=== PATIENT | male | born 1930 | race Caucasian/White ===

== ENCOUNTER → 2016-05-07 | Outpatient (CLI) | payer OTHER ==
[~2016-05-07] MED LIST: ASPIRIN81 M2 PO; ASPIRIN81 MG PO; ASPIRINEC PO; BYSTOLIC5 MG PO; CARAFATE PO; CENTRUM SILVER PO; COREG PO; DITROPAN XL10 MG PO; FIBER500 MG PO; HCTZ PO; IMDUR PO; IRON SUPPLEMENT; LEVAQUIN750 M1 PO; LIPITOR PO; LIPITOR20 MG PO; LISINOPRIL PO; METOPROLOL TAR25 MG PO; MULTI-DAY1 TAB PO; NITROGYLCERIN SUBLINGUAL; NORCO; PLAVIX PO; PROTONIX PO; VITAMIN D400 UNI2 PO; ZOCOR20 MG PO
[2016-05-07 15:17] LABS: HEMATOCRIT 22.2 % (38.0-50.0); HEMOGLOBIN 7.1 gm/dL (13.0-16.0); MEAN CELL VOLUME 87.4 FL (83-96); MEAN CORPUSCULAR HEMOGLOBIN 28.1 PG (28-34); MEAN CORPUSCULAR HGB CONC 32.1 g/dL (30-36); MEAN PLATELET VOLUME 7.7 FL (6.5-11.5); RED BLOOD COUNT 2.54 X10e (3.90-5.60); RED CELL DISTRIBUTION WIDTH 14.1 % (11.0-15.5); WHITE BLOOD COUNT 4.7 X10e3 (4.0-10.5)
== END | disposition home or self-care (01) ==
LOC: CLAB 14:16
PROVIDERS: Surgery
DX: R10.9 Unspecified abdominal pain (principal); K92.1 Melena
CPT/HCPCS: 36415; 85027

== ENCOUNTER → 2016-05-11 | Day surgery (SDC) | payer OTHER ==
--- NOTE | ~2016-05-11 | OR ---
Unit #: [id number] #: [id number] Patient: JOCELYN LAMBERT [id number] [address] [address] [id number] O MR#: [id number] NAME: JOCELYN LAMBERT ROOM: Date of Procedure: 05/11/2016 Admission Date: 05/11/2016 Surgeon: Rodrigue Nelson Jr., M.D. : 1930 Attending Physician: Rodrigue Nelson Jr., M.D. Referring Physician: Rodrigue Nelson Jr., M.D. OPERATIVE REPORT INDICATION FOR PROCEDURE The patient is an 85-year-old white male, who recently was seen at the office and noted to be somewhat anemic. He stated that he has had black stools and he underwent a prep at home. He is brought in this time for upper and lower endoscopy. CBC revealed hemoglobin of 7.1. He was set up to have blood given today and this has been started and he feels much better after the transfusion. PREOPERATIVE DIAGNOSIS Gastrointestinal bleed, etiology? POSTOPERATIVE DIAGNOSES Small hiatal hernia with multiple superficial duodenal ulcers and previous surgery with colonoscopy to the terminal ileum. Small polyp was noted in the transverse colon near the hepatic flexure and diverticulosis of left colon. ANESTHESIA MAC anesthesia. PROCEDURE PERFORMED Flexible fiberoptic esophagogastroduodenoscopy with flexible colonoscopy to the distal ilium and biopsy of a small polyp in the transverse colon. DESCRIPTION OF PROCEDURE The patient was positioned in Sawant position with left side down. After being given MAC anesthesia, the Olympus XQ scope was passed in the proximal esophagus. The entire esophagus was examined. There was no evidence of any significant esophagitis except near the GE junction, there was some slight irritation. There was no evidence of any stenosis. The scope was advanced through the GE junction, the cardia, and down the fundic and antral region of the stomach, retroflexed back up to the area of the cardia. There was a small hiatal hernia present. The stomach distended well without evidence of rigidity. There was evidence of probable resection of the distal stomach. The scope was then advanced down to the prepyloric region and there appeared to be a wide open pyloric area, although this may merely be a gastroduodenostomy. The scope was then advanced through this area into the duodenum, where there were multiple small superficial duodenal ulcerations. The scope was then advanced down the distal bowel, there was no evidence of any other abnormalities. The scope was then slowly removed. The patient was repositioned for colonoscopy. Digital rectal examination was performed, Unit #: [id number] #: [id number] Patient: JOCELYN LAMBERT which revealed no palpable mass or tenderness. No blood or stool within the rectal ampulla. Prostate was very hard, almost rock hard and irregular. He has had a known past history for prostatic disease probably prostate cancer. The Olympus colonoscope was advanced through the anal canal up the rectum and retroflexed down to the area of the anorectal region. There was no evidence of any fissures. No significant internal hemorrhoids. The scope was then straightened and advanced up the rectosigmoid, in the sigmoid and descending colon areas, where a few diverticula without evidence of diverticulitis. The scope was then advanced around the splenic flexure and the transverse colon over the area of the hepatic flexure, where there was a small 1 to 2 mm polyp, which was basically removed with a couple of bites with the cold biopsy forceps without bleeding. The scope was then advanced around the hepatic flexure and ascending colon, down the area of the cecum. The light from the tip of the scope could be seen transilluminating through right lower quadrant abdominal wall area. The scope was advanced up the distal ileum approximately 10 to 12 inches. There was no evidence of any ileitis or inflammatory bowel disease. The scope was slowly removed. There were no tumors except for the one small polyp, no other polyps, no cancer, no AVMs. No evidence of any colitis or acute diverticulitis. The caliber of the colon appeared normal throughout without evidence of narrowing or obstruction. The scope was removed. The patient tolerated the procedure well and discharged in satisfactory condition. Dictated by... Rodrigue Nelson Jr., M.D. JMB/olivia TD: 05/12/2016 05:29 JOB #: [id number] OPERATIVE REPORT Page 1 of 1 X Rodrigue Nelson MD X PROCEDURE OPERATIVE NOTE
== END | disposition home or self-care (01) ==
LOC: COPS 07:26
DX: D12.3 Benign neoplasm of transverse colon (principal); K57.30 Diverticulosis of large intestine without perforation or abscess without bleeding; K44.9 Diaphragmatic hernia without obstruction or gangrene; D64.9 Anemia, unspecified; I10 Essential (primary) hypertension; I25.10 Atherosclerotic heart disease of native coronary artery without angina pectoris; I25.2 Old myocardial infarction; E89.0 Postprocedural hypothyroidism; Z79.82 Long term (current) use of aspirin; Z79.899 Other long term (current) drug therapy; Z90.3 Acquired absence of stomach [part of]; Z90.49 Acquired absence of other specified parts of digestive tract; Z98.41 Cataract extraction status, right eye; Z98.42 Cataract extraction status, left eye; Z98.52 Vasectomy status; Z98.890 Other specified postprocedural states
CPT/HCPCS: 36430; 86850; 86900; 86901; 86922; 88305; P9016

== ENCOUNTER 2016-05-16 19:25 | Inpatient (IN) | payer OTHER ==
--- NOTE | ~2016-05-16 | CR72 ---
[facility] A Service of [facility] RADIOLOGY TEXT RESULTS PATIENT: JOCELYN LAMBERT LOCATION: [address] : [birth year] UNIT #: [id number] AGE: [address]: MIYA OLIVER MD SEX: M ORDER DR: [id number] [place], [place] [address] [id number] I MR#: [id number] Acc #: [id number] NAME: JOCELYN LAMBERT. : 1930 SEX: M STUDY DATE/TIME: 05/21/2016 6:01 UNIT: [facility] ROOM: [facility] STUDY DESCRIPTION: CR Chest Single View Portable Attending Physician: Miya Oliver M.D. Ordering Physician: Bear Javier M.D. Primary Care Physician: Primary Care Physician No MEDICAL IMAGING REPORT This report is preliminary unless electronic signature is present EXAM AP portable chest 05/21/2016 06:01 HISTORY Chest tube placement. On ventilator. Symptoms began 05/17/2016. History of cardiac arrest, rib fracture, right pneumothorax. History of colorectal cancer, congestive heart failure, coronary artery disease, previous stroke and myocardial infarction. Remote smoking history. COMPARISON AP portable chest 05/20/2016. FINDINGS Right chest tube is stable in position. No pneumothorax is visible. Stable cardiac enlargement with central vascular congestion. Persistent retrocardiac left lower lobe consolidative change with small left pleural effusion. Trace right pleural effusion persists. Right IJ approach catheter projects over expected location of the right ventricle. Dobbhoff tube extends below the level of the diaphragm with tip not included in the imaging field of view. Fine interstitial prominence in the mid to lower lung zones is nonspecific and may represent changes of mild interstitial edema. IMPRESSION 1. Questionable features of mild or early interstitial edema, slightly more prominent than on prior exam. 2. No visible pneumothorax. Supporting lines and tubes appear unchanged. 3. Persistent left lower lobe consolidation with small left, trace right pleural effusions. 4. Stable cardiac enlargement. Dictated by... [facility] A Service of [facility] RADIOLOGY TEXT RESULTS PATIENT: JOCELYN LAMBERT LOCATION: [address] : [birth year] UNIT #: [id number] AGE: [address]: MIYA OLIVER MD SEX: M ORDER DR: Alejandrina Liao M.D. THIS IS AN ELECTRONICALLY VERIFIED REPORT Alejandrina Liao M.D. at 05/22/2016 8:33 AM FLORA/moses TD: 05/21/2016 09:50 JOB #: [id number] MEDICAL IMAGING REPORT Page 1 of 1 COPY
--- NOTE | ~2016-05-16 | EKG ---
PATIENT: JOCELYN LAMBERT UNIT #: [id number] Ventricular Rate: 46 BPM Atrial Rate: 46 BPM P-R Interval: 170 ms QRS Duration: 172 ms Q-T Interval: 568 ms QTC Calculation(Bezet): 497 ms P [place]: 19 degrees Calculated R [place]: -22 degrees Calculated T [place]: 109 degrees Diagnosis Line: Sinus bradycardia Diagnosis Line: Left bundle branch block Diagnosis Line: Abnormal ECG Diagnosis Line: No previous ECGs available Diagnosis Line: Confirmed by VALENTIN RAMIREZ MD ([id number]) on 05/16/2016 Diagnosis Line: 11:04:32 PM INTERPRETING MD: JAMES WHITMAN
--- NOTE | ~2016-05-16 | EKG ---
PATIENT: JOCELYN LAMBERT UNIT #: [id number] Ventricular Rate: 69 BPM Atrial Rate: 76 BPM QRS Duration: 222 ms Q-T Interval: 644 ms QTC Calculation(Bezet): 690 ms P [place]: 77 degrees Calculated R [place]: -77 degrees Calculated T [place]: 89 degrees Diagnosis Line: Electronic ventricular pacemaker Diagnosis Line: When compared with ECG of 17-MAY-2016 09:21, Diagnosis Line: (unconfirmed) Diagnosis Line: Previous ECG has undetermined rhythm, needs review Diagnosis Line: Confirmed by VALENTIN RAMIREZ MD ([id number]) on 05/18/2016 Diagnosis Line: 7:14:04 PM INTERPRETING MD: JAMES WHITMAN
--- NOTE | ~2016-05-16 | CR6 ---
[facility] A Service of [facility] & [facility] RADIOLOGY TEXT RESULTS PATIENT: JOCELYN LAMBERT LOCATION: [address] : [birth year] UNIT #: [id number] AGE: [address]: Francisco Villanueva MD SEX: M ORDER DR: [id number] [facility] [address] [facility]. [place], [place] [address] [id number] I MR#: [id number] Acc #: [id number] NAME: JOCELYN LAMBERT : 1930 SEX: M STUDY DATE/TIME: 05/17/2016 16:02 UNIT: [facility] ROOM: [facility] STUDY DESCRIPTION: CR Abdomen Portable Sng View Attending Physician: Francisco Villanueva M.D. Ordering Physician: Kevan Scott M.D. Primary Care Physician: No Primary Care Physician MEDICAL IMAGING REPORT This report is preliminary unless electronic signature is present EXAM Portable abdomen HISTORY Dobbhoff tube placement today. FINDINGS Portable radiograph of the abdomen for Dobbhoff tube placement demonstrates the feeding tube tip is in the left upper quadrant at the level of the proximal gastric body 14 cm beyond the EG junction. Visualized bowel gas pattern is normal. The exam partly excludes the right lateral abdomen in the lower pelvis. Consolidation or atelectasis in the retrocardiac left lower lobe. Dictated by... Samuel Badillo M.D. THIS IS AN ELECTRONICALLY VERIFIED REPORT Samuel Badillo M.D. at 05/17/2016 11:16 PM DFL/rnr TD: 05/17/2016 20:07 JOB #: [id number] MEDICAL IMAGING REPORT Page 1 of 1 COPY
--- NOTE | ~2016-05-16 | CR72 ---
[facility] A Service [facility] RADIOLOGY TEXT RESULTS PATIENT: JOCELYN LAMBERT LOCATION: [facility] : [birth year] UNIT #: [id number] AGE: [address]: Francisco Villanueva MD SEX: M ORDER DR: [id number] [place], [place] [address] [id number] I MR#: [id number] Acc #: [id number] NAME: JOCELYN LAMBERT : 1930 SEX: M STUDY DATE/TIME: 05/17/2016 0:02 UNIT: [facility] ROOM: [id number] STUDY DESCRIPTION: CR Chest Single View Portable Attending Physician: Alannah Skinner M.D. Ordering Physician: Frantz Ramos M.D. Primary Care Physician: Primary Care Physician No MEDICAL IMAGING REPORT This report is preliminary unless electronic signature is present EXAM Portable chest INDICATIONS ET tube placement. PROCEDURE Frontal view chest. COMPARISON 05/16/2016 FINDINGS Probably stable cardiomegaly. ET tube is positioned approximately 3.5 cm above the hermilo. No new dense consolidation. Curvilinear lucency in the right apex suspicious for a small right apical pneumothorax. This is not seen on the prior. IMPRESSION 1. ET tube is approximately 3.5 cm above the hermilo. 2. Suspicion for a small right apical pneumothorax new compared with the previous study. Dictated by... Luis A Breaux M.D. THIS IS AN ELECTRONICALLY VERIFIED REPORT Luis A Breaux M.D. at 05/21/2016 7:30 AM EED/psc TD: 05/17/2016 04:04 JOB #: [id number] [facility] A Service [facility] RADIOLOGY TEXT RESULTS PATIENT: JOCELYN LAMBERT [facility] [birth year] UNIT #: [id number] AGE: [address]: Francisco Villanueva MD SEX: M ORDER DR: MEDICAL IMAGING REPORT Page 1 of 1 COPY
--- NOTE | ~2016-05-16 | CO ---
Unit #: [id number] #: [id number] Patient: JOCELYN LAMBERT [id number] [place], [place] [address] [id number] I MR#: [id number] NAME: JOCELYN LAMBERT. ROOM: [facility] Age: 85 Sex: M Admission Date: 05/17/2016 : 1930 Attending Physician: Francisco Villanueva M.D. Consultation Date: 05/20/2016 CONSULTATION REPORT REASON FOR CONSULTATION Renal insufficiency and decreased output. Thank you very much for asking us to see this patient in consultation. HISTORY OF PRESENT ILLNESS Mr. Jocelyn Lambert is an 85-year-old gentleman, who has history of hypertension, heart disease, vascular disease, who underwent EGD about on 05/11/2016, showed multiple ulcers, who apparently prior to admission on 05/17/2016 had increasing shortness of breath, was treated with Levaquin as an outpatient, apparently had several syncopal episodes, presented to the emergency room where he had V-fib arrest requiring CPR, developed pneumothorax and requiring a chest tube. Since admission, the patient was noted to have an echo which showed a decreased EF around 15% to 20%. He also has a temporary pacemaker and currently, he has also had some increasing bleeding from his chest tube requiring several units of blood. We were asked to see the patient secondary to worsening creatinine. In 2012, he had a creatinine of 1.2. Upon admission, creatinine was 1.5 and up to 3.1 today with some decreased output. The patient over the last 24 hours had 3.9 L in and 965 out. Although, the day prior to that had 1400 more out than in. The patient currently is alert. He is having some mild shortness of breath, but not severe. He says his chest is sore where the chest tube is. He denies any severe abdominal pain. No nausea or vomiting. Although, he is not eating yet. He feels the swallowing study and he has a Dobbhoff placed that has not been used yet. PAST MEDICAL HISTORY History of hypertension; history of atherosclerotic coronary artery disease, status post stents in 2008; history of TIA/CVA in 2008; history of peripheral vascular disease; history of peptic ulcer disease; again duodenal ulcers on 05/11/2016 EGD; history of colon/rectal cancer, status post surgery. He has had multiple abdominal surgeries apparently due to adhesions, history of hyperlipidemia. ALLERGIES No known drug allergies. SOCIAL HISTORY He is . Previous smoker, stopped at 67. No significant alcohol use. MEDICATIONS Include Lipitor, aspirin, amiodarone, Percocet, Protonix, Coreg. He was on Lasix, spironolactone, and lisinopril that was started but that has Unit #: [id number] #: [id number] Patient: JOCELYN LAMBERT been discontinued today. REVIEW OF SYSTEMS He denies any visual problems or sinus problems. No cough or hemoptysis. No neck pain. He has chest sore. Shortness of breath is not any worse, maybe a little bit better. He denies any severe abdominal pain. He previously had no urinary symptoms, although currently he has Soto catheter in. He denies any significant lower extremity swelling. No recent seizures. No skin rashes. FAMILY HISTORY Noncontributory. PHYSICAL EXAMINATION VITAL SIGNS: His T-max is 99.7, pulse 66, blood pressure 87 to 118 over 40s to 70s. HEENT: Normocephalic and atraumatic. Pupils are equal, round, and reactive to light. Extraocular muscles are intact. Hearing appears to be fairly normal. Mouth is clear. No erythema. No exudates. NECK: Supple. No adenopathy. He has a pace wire going in line in his right neck. CARDIAC: Without a rub. No S3 or S4. LUNGS: Have bilateral rales at his bases. Chest tube is on the right. ABDOMEN: Bowel sounds positive. Nontender. Soft. No masses felt. No mass or organomegaly noted. EXTREMITIES: He has some very very trace ankle edema right greater than left. SKIN: He has no skin rashes. : Soto catheter is in place. NEUROLOGIC: He appears to be alert and oriented. Able to move all extremities. DIAGNOSTIC STUDIES LABORATORY RESULTS: Shows sodium of 139, potassium 4.9, chloride is 107, bicarb is 24, BUN and creatinine 43 and 3.1, glucose 123, calcium 7.7, phosphorus 5.8. Previous creatinine is as in the HPI. Hemoglobin 7.5, white count 10,400, platelets 133,000. UA upon admission showed no protein, 0 to 2 rbc's, 0 to 2 wbc's. IMAGING STUDIES: His chest x-ray this morning showed bilateral effusions left greater than right and has some cardiomegaly questionable failure. Echo done now showed an EF 15% to 20%. ASSESSMENT AND PLAN 1. Acute kidney injury on possible chronic kidney disease, stage 3. Again, BUN and creatinine are worsening with decreasing output. His diuretics and his DAMIEN inhibitor was stopped this morning. He was started on some mild hydration. My gut feeling is that he probably has acute tubular necrosis from his episode of hypotension, code ventricular tachycardia, blood loss, etc., but agree with some mild hydration. Although, I am going to start him on some tube feeds and discontinue his IV fluids after only 1 L. Certainly, if he gets more short of breath, then I would stop all fluids and give high-dose diuretics. We will check a urine eosinophil. We will keep him on his PPI for now due to his ulcers found on his esophagogastroduodenoscopy. We will check renal ultrasound tomorrow. We will continue to follow. Start Nepro. 2. Status post arrest, ventricular tachycardia. Decrease EF. 3. Respiratory insufficiency with pneumothorax, chest tube. Unit #: [id number] #: [id number] Patient: JOCELYN LAMBERT 4. Anemia, intermittent transfusions as needed. Dictated by..Deborah Davis M.D. JUDIT/olivia TD: 05/21/2016 00:10 JOB #: [id number] CONSULTATION REPORT Page 1 of 1 X Isabell Davis MD X CONSULTATION REPORT
--- NOTE | ~2016-05-16 | EKG ---
PATIENT: JOCELYN LAMBERT UNIT #: [id number] Ventricular Rate: 66 BPM Atrial Rate: 60 BPM QRS Duration: 214 ms Q-T Interval: 568 ms QTC Calculation(Bezet): 595 ms Calculated R [place]: -78 degrees Calculated T [place]: 89 degrees Diagnosis Line: Electronic ventricular pacemaker Diagnosis Line: When compared with ECG of 19-MAY-2016 12:05, Diagnosis Line: (unconfirmed) Diagnosis Line: No significant change was found Diagnosis Line: Confirmed by VALENTIN RAMIREZ MD ([id number]) on 05/20/2016 Diagnosis Line: 4:45:24 PM INTERPRETING MD: JAMES WHITMAN
--- NOTE | ~2016-05-16 | EKG ---
PATIENT: JOCELYN LAMBERT UNIT #: [id number] Ventricular Rate: 89 BPM Atrial Rate: 86 BPM P-R Interval: 304 ms QRS Duration: 160 ms Q-T Interval: 376 ms QTC Calculation(Bezet): 457 ms P [place]: 126 degrees Calculated R [place]: -17 degrees Calculated T [place]: 96 degrees Diagnosis Line: Normal sinus rhythm with A-V dissociation Diagnosis Line: Non-specific intra-ventricular conduction block Diagnosis Line: Inferior infarct , age undetermined Diagnosis Line: Marked T wave abnormality, consider anterolateral Diagnosis Line: ischemia Diagnosis Line: Abnormal ECG Diagnosis Line: When compared with ECG of 16-MAY-2016 19:32, Diagnosis Line: Normal sinus rhythm with A-V dissociation is now Diagnosis Line: Present Diagnosis Line: Non-specific intra-ventricular conduction block Diagnosis Line: has replaced Left bundle branch block Diagnosis Line: Inferior infarct is now Present Diagnosis Line: Confirmed by VALENTIN RAMIREZ MD ([id number]) on 05/18/2016 Diagnosis Line: 6:58:47 PM INTERPRETING MD: JAMES WHITMAN
--- NOTE | ~2016-05-16 | EKG ---
PATIENT: JOCELYN LAMBERT UNIT #: [id number] Ventricular Rate: 42 BPM Atrial Rate: 55 BPM QRS Duration: 174 ms Q-T Interval: 554 ms QTC Calculation(Bezet): 462 ms P [place]: 21 degrees Calculated R [place]: -38 degrees Calculated T [place]: 142 degrees Diagnosis Line: Sinus bradycardia with A-V dissociation with Diagnosis Line: ventricular escape complexes Diagnosis Line: Left axis deviation Diagnosis Line: Left bundle branch block Diagnosis Line: Abnormal ECG Diagnosis Line: When compared with ECG of 16-MAY-2016 23:55, Diagnosis Line: (unconfirmed) Diagnosis Line: Sinus bradycardia with ventricular escape Diagnosis Line: complexes is now Present Diagnosis Line: Left bundle branch block has replaced Non-specific Diagnosis Line: intra-ventricular conduction block Diagnosis Line: Criteria for Inferior infarct are no longer Diagnosis Line: Present Diagnosis Line: Confirmed by VALENTIN RAMIREZ MD ([id number]) on 05/18/2016 Diagnosis Line: 7:02:51 PM INTERPRETING MD: JAMES WHITMAN
--- NOTE | ~2016-05-16 | CR72 ---
[facility] A Service of [facility] & [facility] RADIOLOGY TEXT RESULTS PATIENT: JOCELYN LAMBERT LOCATION: [address] [address] : [birth year] UNIT #: [id number] AGE: [address]: Francisco Villanueva MD SEX: M ORDER DR: [id number] [facility] [address] [facility]. [place], [place] [address] [id number] I MR#: [id number] Acc #: [id number] NAME: JOCELYN LAMBERT : 1930 SEX: M STUDY DATE/TIME: 05/20/2016 0344 UNIT: [facility] ROOM: [facility] STUDY DESCRIPTION: CR Chest Single View Portable Attending Physician: Francisco Villanueva M.D. Ordering Physician: Arcadio Briones M.D. Primary Care Physician: No Primary Care Physician MEDICAL IMAGING REPORT This report is preliminary unless electronic signature is present EXAM Portable chest, 05/20 at 0344. INDICATION Chest tube. Patient appears status post cardiac arrest and pneumonia. FINDINGS AP portable views of the chest are compared with 05/19/2016. Right IJ transvenous pacer projects over the RV. Cardiomegaly is stable. Bilateral effusions are stable left greater than right. Right chest tube in place. No pneumothorax is seen on either side of the chest. Some continued vascular congestion and there is consolidation behind the heart at the left base. Dictated by... Williams Mcmahan Jr., M.D. THIS IS AN ELECTRONICALLY VERIFIED REPORT Williams Mcmahan Jr., M.D. at 05/20/2016 11:58 PM SARANYA/aishwarya TD: 05/20/2016 08:01 JOB #: [id number] MEDICAL IMAGING REPORT Page 1 of 1 COPY
--- NOTE | ~2016-05-16 | CR72 ---
[facility] A Service of [facility] & [facility] RADIOLOGY TEXT RESULTS PATIENT: JOCELYN LAMBERT LOCATION: [address] : [birth year] UNIT #: [id number] AGE: [address]: Francisco Villanueva MD SEX: M ORDER DR: [id number] [facility] [address] [facility]. [place], [place] [address] [id number] MR#: [id number] Acc #: [id number] NAME: JOCELYN LAMBERT : 1930 SEX: M STUDY DATE/TIME: 05/16/2016 20:36 UNIT: [facility] ROOM: STUDY DESCRIPTION: CR Chest Single View Portable Attending Physician: Frantz Ramos M.D. Ordering Physician: Frantz Ramos M.D. Primary Care Physician: Primary Care Physician No MEDICAL IMAGING REPORT This report is preliminary unless electronic signature is present EXAM Single view chest INDICATIONS Shortness of air and weakness. FINDINGS Single portable AP view of the chest compared to 03/26/2009. Cardiac silhouette is enlarged. This could be due to cardiomegaly or a developing pericardial effusion. There is mild interstitial edema and small bilateral pleural effusions. No pneumothorax. IMPRESSION 1. Increase size in the cardiac silhouette may be due to cardiomegaly or a pericardial effusion. 2. Mild interstitial edema and small bilateral pleural effusions have developed. Dictated by... Aditya Carballo M.D. THIS IS AN ELECTRONICALLY VERIFIED REPORT Aditya Carballo M.D. at 05/17/2016 3:25 PM C/flores TD: 05/16/2016 23:51 JOB #: [id number] MEDICAL IMAGING REPORT Page 1 of 1 COPY
--- NOTE | ~2016-05-16 | CR72 ---
[facility] A Service of [facility] & [facility] RADIOLOGY TEXT RESULTS PATIENT: JOCELYN LAMBERT LOCATION: [address] : [birth year] UNIT #: [id number] AGE: [address]: Francisco Villanueva MD SEX: M ORDER DR: [id number] [facility] [address]. [place], [place] [address] [id number] I MR#: [id number] Acc #: [id number] NAME: JOCELYN LAMBERT : 1930 SEX: M STUDY DATE/TIME: 05/19/2016 20:55 UNIT: [facility] ROOM: [facility] STUDY DESCRIPTION: CR Chest Single View Portable Attending Physician: Francisco Villanueva M.D. Ordering Physician: Bear Javier M.D. Primary Care Physician: No Primary Care Physician MEDICAL IMAGING REPORT This report is preliminary unless electronic signature is present EXAM Portable chest. DATE OF EXAM 05/19/2016 HISTORY Shortness of air today. Chest tube for 2 days. FINDINGS Right chest tube tip overlies the lateral right midlung. The tube has apparently been pulled back approximately 1 cm compared to earlier today. No pneumothorax. Minimal fluid in the lateral margin of the minor fissure and small amount of fluid in the bases bilaterally. Stable consolidation or atelectasis in the retrocardiac left lower lobe and stable cardiac enlargement. Dictated by... Samuel Badillo M.D. THIS IS AN ELECTRONICALLY VERIFIED REPORT Samuel Badillo M.D. at 05/20/2016 9:11 AM YANCI/gilberto TD: 05/19/2016 23:52 JOB #: [id number] MEDICAL IMAGING REPORT Page 1 of 1 COPY
--- NOTE | ~2016-05-16 | HP ---
Unit #: [id number] #: [id number] Patient: JOCELYN LAMBERT [id number] [address] [place], [place] [address] [id number] I MR#: [id number] NAME: JOCELYN LAMBERT. ROOM: [id number] Age: 85 Sex: M Admission Date: 05/17/2016 : 1930 Attending Physician: Alannah Skinner M.D. Primary Care Physician: Primary Care Physician No HISTORY AND PHYSICAL CHIEF COMPLAINT Congestive heart failure, ventricular fibrillation with arrest and resuscitation. HISTORY This 85-year-old male with CAD, hypertension, peptic ulcer disease, is admitted for congestive heart failure. Patient recently had endoscopy performed last week and was found to have multiple superficial ulcers. At some point, he began to experience increasing shortness of breath, which was initially thought to be related to a respiratory infection. He was given a prescription for Levaquin. Yesterday, however, he had two episodes where he transiently blanked out for a few seconds. Told his that he was experiencing some dizziness along with his shortness of breath. He presented to this emergency department late last evening, after the [facility] told him to go to the ER for pneumonia on a chest x-ray re-read. In the ER last night, chest x-ray was performed which was most consistent with congestive heart failure. Patient was given 40 IV of Lasix. While awaiting completion of his workup, the patient went into V-fib arrest at 23:43 p.m. He was immediately shocked, and given epinephrine. He had return of his pulse at 23:47. In fact, his neurologic status improved shortly afterwards and he required a Diprivan drip. Chest x-ray performed after intubation revealed a right apical pneumothorax from the CPR. Therefore, a chest tube was also placed by the ER physician. At this time, the patient is comfortable and sedated on a Diprivan drip. Amiodarone was also started, and currently the patient is bradycardic with heart rates of 50 but with a normal blood pressure. PAST MEDICAL HISTORY 1. CAD with right bundle branch block in the past and normal ejection fraction 2009 on echo, which also revealed mild AR and CT. Patient had a previous OH in 2008 with stent placement in the mid LAD. 2. Essential hypertension. 3. Hyperlipidemia. 4. TIA following OH in 2008. 5. Peripheral vascular disease. 6. Peptic ulcer disease requiring remote surgery. Recent endoscopy performed last week showed a small hiatal hernia with superficial duodenal ulcers. 7. Colon and rectal cancer requiring surgery. Recent colonoscopy revealed a small polyp. 8. Right knee surgery. 9. Hernia repair. Unit #: [id number] #: [id number] Patient: JOCELYN LAMBERT 10. Removal of a growth on the thyroid. 11. Multiple abdominal surgeries due to adhesions. ALLERGIES No known drug allergies. HOME MEDICATIONS 1. Lipitor 20 mg daily 2. Metoprolol 25 mg daily 3. Ditropan XL 10 mg daily 4. Aspirin 81 mg daily, which was being held for his ulcers for 2 weeks. 5. FiberCon 6. Protonix 40 mg daily 7. Recently started Carafate 1 g q.i.d. 8. Recently started Levaquin 750 mg daily started 3 days ago. FAMILY HISTORY CAD SOCIAL HISTORY The patient lives with his . He stopped smoking around 1968. Drinks a little hot toddy. REVIEW OF SYSTEMS Impossible to obtain as the patient currently is sedated on a ventilator. PHYSICAL EXAMINATION GENERAL: A young-appearing 85-year-old male who currently is sedated on a ventilator. VITAL SIGNS: Temperature 97.7, heart rate 50, O2 saturation 100%, blood pressure 128/64. HEENT EXAMINATION: Eyes PERRLA, somewhat constricted on a Diprivan drip. Pharynx is benign. Orally intubated. NECK: Supple without adenopathy. CHEST: Diminished breath sounds. CARDIAC: Normal S1 and S2 with a soft systolic murmur. ABDOMEN: Bowel sounds are diminished. Nontender. No hepatosplenomegaly or masses. EXTREMITIES: With mild edema. NEUROLOGIC EXAM: Patient currently is sedated on a ventilator. DIAGNOSTIC STUDIES ADMISSION LABORATORY: Hematocrit is 31, which is improved. Normal white count and platelet count. INR is 1.3. SMA-12: Creatinine 1.5 (up from 1.2 in 2013), CO2 21. BNP is 2,250. Lactic acid is normal. Initial troponin negative. Second troponin 0.18. IMAGING: First chest x-ray shows mild congestive heart failure and cardiomegaly. Second chest x-ray - ET tube in good position, right apical pneumothorax. Third chest x-ray showed improvement of the pneumothorax; currently awaiting radiologist reading. CARDIOLOGY: Initial EKG showed a left bundle branch block, rate 46. EKG after resuscitation shows a right bundle branch block with PVCs. I am uncertain of the underlying rhythm, however. Heart rate 90. Unit #: [id number] #: [id number] Patient: JOCELYN LAMBERT ASSESSMENT 1. Congestive heart failure x6 days. Patient does have a history of underlying coronary artery disease and previous myocardial infarction and previous normal left ventricular function. stated that yesterday patient had two episodes where he blanked out for a few seconds. He presented to this emergency department late last evening with congestive heart failure. Had a ventricular fibrillation arrest lasting 4 minutes, his neurologic function is now improved. 2. Right pneumothorax following cardiopulmonary resuscitation due to fractured ribs. 3. Peptic ulcer disease with recent endoscopy last week. 4. Essential hypertension. 5. Chronic kidney disease. PLANS 1. Lasix, amiodarone drip, aspirin, obtain echo, repeat cardiac enzymes and consult Cardiology. Magnesium and thyroid function tests will be obtained. 2. Pulmonary to see and thoracic surgeon to see. 3. DVT and gastritis prophylaxis. 4. Sedation. 5. Repeat all labs in the morning. 6. Prognosis is guarded, discussed this with the family. 7. Will obtain a urinalysis. Critical care time spend in evaluating this patient was 40 minutes. Dictated by Alannah Skinner M.D. AGUILAR/psc TD: 05/17/2016 04:06 JOB #: [id number] HISTORY AND PHYSICAL Page 1 of 1 X Alannah Skinner MD X HISTORY AND PHYSICAL
--- NOTE | ~2016-05-16 | CO ---
Unit #: [id number] #: [id number] Patient: JOCELYN LAMBERT L [id number] [address] [place], [place] [address] [id number] I MR#: [id number] NAME: JOCELYN LAMBERT ROOM: [facility] Age: 85 Sex: M Admission Date: 05/17/2016 : 1930 Attending Physician: Francisco Villanueva M.D. Consultation Date: 05/17/2016 CONSULTATION REPORT REASON FOR CONSULTATION Ventricular fibrillation arrest. HISTORY OF PRESENT ILLNESS The patient is an 85-year-old man who is a patient of Dr. Devine. The patient's family reports that he did have a cardiac catheterization at [facility] in 2008. Per chart review, it seems that patient got a stent to the mid LAD. Details are unknown at this time, but records have been requested. Additional past medical history includes coronary artery disease, right bundle branch block, hypertension, hyperlipidemia, CVA in 2008, peptic ulcer disease, and peripheral vascular disease. He quit smoking in 1968. The patient is intubated and sedated. Much of my information has come from chart review and from the patient's family. The patient recently had an endoscopy performed last week and was found to have multiple superficial gastric ulcers. At some point after his procedure while he was at home, he had some increasing shortness of breath that was initially thought to be a respiratory infection. He was started on a prescription for Levaquin. Per the patient's , he had two episodes where he transiently "blanked out" for a few seconds. He had told his that he had been experiencing some dizziness, along with shortness of breath. The patient presented to the emergency department last evening after [facility] told him to go to the ER for pneumonia. In the ER last night, a chest x-ray was performed and showed findings most consistent with congestive heart failure. The patient was given 40 of IV Lasix. While waiting for completion of his workup, the patient went into ventricular fibrillation arrest at 2343 hours. He was immediately shocked and given epinephrine. He had return of his pulse at 2347 hours. The patient was intubated. He was started on a Diprivan and amiodarone drip. A chest x-ray post intubation revealed a right apical pneumothorax from CPR. A chest tube was placed by the ER physician. Cardiology was consulted for ventricular fibrillation arrest. His point of care troponins were less than 0.05 and 1.8. Telemetry monitoring shows sinus bradycardia with rates in the 40s. The patient was given amiodarone at 1 mg for three hours and then decreased to 0.5 mg for six hours. At the completion of the six hours, amiodarone was stopped. PAST MEDICAL HISTORY 1. Cardiac catheterization in 2008 with a stent to the mid LAD. 2. Right bundle branch block. 3. Normal ejection fraction from echo in 2009 with mild AR and SD. Unit #: [id number] #: [id number] Patient: JOCELYN LAMBERT 4. Myocardial infarction in 2008. 5. Cerebrovascular accident in 2008. 6. Hypertension. 7. Hyperlipidemia. 8. Peripheral vascular disease. 9. Colorectal cancer requiring surgery. Recent colonoscopy revealed a small polyp. 10. Peptic ulcer disease requiring remote surgery. 11. Recent endoscopy performed last week showed a small hiatal hernia with superficial duodenal ulcers. 12. Reformed tobaccoism, quit in 1968. PAST SURGICAL HISTORY 1. Colorectal cancer requiring surgery. 2. Cardiac catheterization. 3. Peptic ulcer disease requiring remote surgery. 4. Right knee surgery. 5. Hernia repair. 6. Removal of growth on thyroid. 7. Multiple abdominal surgeries due to adhesions. ALLERGIES No known drug allergies. HOME MEDICATIONS 1. Lipitor 20 mg p.o. daily. 2. Metoprolol tartrate 25 mg p.o. daily. 3. Ditropan XL 10 mg p.o. daily. 4. Aspirin 81 mg p.o. daily. 5. Fiber 500 mg p.o. daily. 6. Protonix 40 mg p.o. daily. 7. Carafate 1 gram p.o. 4 times daily. 8. Levaquin 750 mg p.o. daily. FAMILY HISTORY Coronary artery disease. SOCIAL HISTORY Patient lives with his . He quit smoking in 1968. He occasionally drinks a hot toddy at night in the winter. He is independent in his activities of daily living. REVIEW OF SYSTEMS Unable to obtain secondary to mentation, and patient is on mechanical ventilation. PHYSICAL EXAMINATION GENERAL: Patient is sedated on a ventilator. VITAL SIGNS: Temperature 100.6, heart rate 49, respirations 21, blood pressure 120/55, and he is oxygenating 100%. HEENT: Pupils are equal, round, and reactive to light and accommodation. NECK: Supple. Trachea is midline. No lymphadenopathy or thyromegaly is appreciated. CHEST: Lung sounds are diminished bilaterally with faint crackles in the bases. He is orally intubated. There is a left apical chest tube. CARDIOVASCULAR: S1 and S2 with a 2/6 systolic murmur. ABDOMEN: Soft, nontender, and nondistended. Bowel sounds are positive in all four quadrants. No hepatosplenomegaly is appreciated. Unit #: [id number] #: [id number] Patient: JOCELYN LAMBERT EXTREMITIES: Bilateral lower extremity edema. NEUROLOGIC: Patient is sedated on the ventilator. He does grimace to pain. GENITOURINARY: Patient has a Soto catheter with yellow urine. DIAGNOSTIC STUDIES LABORATORY: White blood cells 7.3, hemoglobin 9.9, hematocrit 31, and platelets 182,000. Sodium 139, potassium 3.6, chloride 108, CO2 of 21, BUN 22, creatinine 1.5, and glucose 98. Point of care troponin was less than 0.05 and 0.18. ASSESSMENT 1. Ventricular fibrillation, status post resuscitated arrest. 2. Acute hypoxic respiratory failure requiring mechanical ventilation. 3. Left bundle branch block. 4. Right pneumothorax status post chest tube secondary to fractured ribs during cardiopulmonary resuscitation. 5. Likely acute congestive heart failure, possibly systolic. 6. Hypertension. 7. Hyperlipidemia. 8. Coronary artery disease with history of stent to the mid left anterior descending in 2008. 9. Peptic ulcer disease. 10. Peripheral vascular disease. 11. Small hiatal hernia. PLAN Will attempt to obtain cathodic protection technician reports from Nichole and last office note from Dr. Devine. Will do a 2D echocardiogram for CHF. Will do cardiac enzymes q.6 hours x2. Will do an EKG now and in the a.m. Will place the patient on strict I/Os. Will check a CBC, magnesium, TSH, lipid panel, and CBC. Will start the patient on a dopamine drip at 5. Dr. Scott has seen the patient, and the patient will need to go to the cathodic protection technician for a temporary pacemaker, cardiac catheterization with possible PCI/stents, and possible intraaortic balloon pump placement. Dictated by... Crista Villanueva A.P.R.N. for Kevan Scott M.D. AM/bernadette TD: 05/17/2016 18:36 JOB #: [id number] CONSULTATION REPORT Page 1 of 1 X Crista Villanueva APRN CONSULTATION REPORT
--- NOTE | ~2016-05-16 | CR72 ---
[facility] A Service of [facility] & [facility] RADIOLOGY TEXT RESULTS PATIENT: JOCELYN LAMBERT LOCATION: [place] [address] : [birth year] UNIT #: [id number] AGE: [address]: Francisco Villanueva MD SEX: M ORDER DR: [id number] [place] [place], [place] [address] [id number] I MR#: [id number] Acc #: [id number] NAME: JOCELYN LAMBERT : 1930 SEX: M STUDY DATE/TIME: 05/18/2016 19:49 UNIT: [facility] ROOM: [facility] STUDY DESCRIPTION: CR Chest Single View Portable Attending Physician: Francisco Villanueva M.D. Ordering Physician: Seth Oliver M.D. Primary Care Physician: No Primary Care Physician MEDICAL IMAGING REPORT This report is preliminary unless electronic signature is present EXAM Portable chest INDICATIONS Followup chest tube and pneumothorax. Comparison with earlier today. FINDINGS Stable right chest tube. No appreciable pneumothorax. Stable consolidation or atelectasis left base. NG tube is stable. Stable temporary pacing lead. IMPRESSION No pneumothorax. Stable right chest tube. Dictated by... Sanya Coker M.D. THIS IS AN ELECTRONICALLY VERIFIED REPORT Sanya Coker M.D. at 05/21/2016 8:02 AM CHRIS/alina TD: 05/19/2016 04:28 JOB #: [id number] MEDICAL IMAGING REPORT Page 1 of 1 COPY
--- NOTE | ~2016-05-16 | EKG ---
PATIENT: JOCELYN LAMBERT UNIT #: [id number] Ventricular Rate: 69 BPM Atrial Rate: 65 BPM QRS Duration: 224 ms Q-T Interval: 640 ms QTC Calculation(Bezet): 685 ms Calculated R [place]: -78 degrees Calculated T [place]: 96 degrees Diagnosis Line: Electronic ventricular pacemaker Diagnosis Line: When compared with ECG of 17-MAY-2016 13:35, Diagnosis Line: (unconfirmed) Diagnosis Line: No significant change was found Diagnosis Line: Confirmed by VALENTIN RAMIREZ MD ([id number]) on 05/18/2016 Diagnosis Line: 7:20:43 PM INTERPRETING MD: JAMES WHITMAN
--- NOTE | ~2016-05-16 | CR7 ---
[facility] A Service of [facility] & [facility] RADIOLOGY TEXT RESULTS PATIENT: JOCELYN LAMBERT LOCATION: [address] : [birth year] UNIT #: [id number] AGE: [address]: MIYA OLIVER MD SEX: M ORDER DR: [id number] [facility] [address] [place], [place] [address] [id number] I MR#: [id number] Acc #: [id number] NAME: JOCELYN LAMBERT : 1930 SEX: M STUDY DATE/TIME: 05/21/2016 21:46 UNIT: [facility] ROOM: [facility] STUDY DESCRIPTION: CR Abdomen Single AP View Attending Physician: Miya Oliver M.D. Ordering Physician: Davidson Monge M.D. Primary Care Physician: Primary Care Physician No MEDICAL IMAGING REPORT This report is preliminary unless electronic signature is present EXAM KUB, 05/21/2016 at 21:46 INDICATION Feeding tube placement today. FINDINGS Supine view of the abdomen was obtained. Tip of a flexible feeding tube is noted in the body of the stomach. Bowel gas pattern remains nonspecific. Dictated by... Williams Mcmahan Jr., M.D. THIS IS AN ELECTRONICALLY VERIFIED REPORT Williams Mcmahan Jr., M.D. at 05/22/2016 6:04 AM SARANYA/torres TD: 05/22/2016 00:47 JOB #: [id number] MEDICAL IMAGING REPORT Page 1 of 1 COPY
--- NOTE | ~2016-05-16 | CR72 ---
[facility] A Service of [facility] RADIOLOGY TEXT RESULTS PATIENT: JOCELYN LAMBERT LOCATION: [address] : [birth year] UNIT #: [id number] AGE: [address]: MIYA OLIVER MD SEX: M ORDER DR: [id number] [facility] [address] [facility] [place], [place] [address] [id number] I MR#: [id number] Acc #: [id number] NAME: JOCELYN LAMBERT : 1930 SEX: M STUDY DATE/TIME: 05/21/2016 09:24 UNIT: [facility] ROOM: [facility] STUDY DESCRIPTION: CR Chest Single View Portable Attending Physician: Miya Oliver M.D. Ordering Physician: Floresita Marin A.P.R.N. Primary Care Physician: Primary Care Physician No MEDICAL IMAGING REPORT This report is preliminary unless electronic signature is present EXAM Chest portable 05/21/2016 0924 hours HISTORY Chest tube removed today. Evaluate for pneumothorax, question congestive heart failure versus atrial fibrillation. COMPARISON 05/21/2016 0601 hours. FINDINGS Portable upright chest demonstrates removal of the right chest tube. No pneumothorax is seen. Right IJ pacer wire is present with tip over the cardiac apex. Flexible feeding tube tip is in the mid body of the stomach. There is stable cardiomegaly. There is mild pulmonary venous distension with decrease in bilateral interstitial changes since earlier today. There is retrocardiac density obscuring the left hemidiaphragm which could indicate atelectasis or effusion. IMPRESSION 1. Interval removal of right chest tube with no pneumothorax. 2. Stable cardiomegaly and left retrocardiac density. 3. Overall decrease in bilateral interstitial changes likely representing decreased atelectasis and/or decreased edema. There is no pneumothorax. Dictated by... Mague Edwards M.D. THIS IS AN ELECTRONICALLY VERIFIED REPORT Mague Edwards M.D. at 05/21/2016 2:28 PM SMM/allysons [facility] A Service of [facility] RADIOLOGY TEXT RESULTS PATIENT: JOCELYN LAMBERT LOCATION: [facility] CICCU2-01 : [birth year] UNIT #: [id number] AGE: [address]: MIYA OLIVER MD SEX: M ORDER DR: TD: 05/21/2016 12:08 JOB #: [id number] MEDICAL IMAGING REPORT Page 1 of 1 COPY
--- NOTE | ~2016-05-16 | CR72 ---
[facility] A Service of [facility] RADIOLOGY TEXT RESULTS PATIENT: JOCELYN LAMBERT LOCATION: [address] : [birth year] UNIT #: [id number] AGE: [address]: MIYA SUNSHINE MD SEX: M ORDER DR: [id number] [facility] [address] [facility]. [place], [place] [address] [id number] I MR#: [id number] Acc #: [id number] NAME: JOCELYN LAMBERT. : 1930 SEX: M STUDY DATE/TIME: 05/19/2016 4:09 UNIT: [facility] ROOM: [facility] STUDY DESCRIPTION: CR Chest Single View Portable Attending Physician: Francisco Villanueva M.D. Ordering Physician: Cj Briones Primary Care Physician: Primary Care Physician No MEDICAL IMAGING REPORT This report is preliminary unless electronic signature is present EXAM Single view of the chest dated 05/19/2016. COMPARISON Single view of chest dated 05/18/2016. HISTORY Patient has a chest tube and is on vent. FINDINGS Frontal view of the chest was obtained. Previously noted right IJ approach temporary pacing lead and Dobbhoff tube are again noted and stable position. There is no significant change in the cardiopulmonary status. Right-sided chest tube is stable. No well-defined pneumothorax could be identified on the right. Stable ehge-jp-efrzywas left-sided pleural effusion with associated underlying atelectasis/infiltrate in the left lung base. There is some prominence of the bronchovascular markings noted in the lungs suggestive of mild congestion in the appropriate clinical setting. IMPRESSION No significant interval change. Dictated by... Luis Felipe Henao M.D. THIS IS AN ELECTRONICALLY VERIFIED REPORT Luis Felipe Henao M.D. at 05/21/2016 1:44 PM CPR/pc TD: 05/19/2016 12:12 JOB #: [id number] [facility] A Service of [facility] / [facility] RADIOLOGY TEXT RESULTS PATIENT: JOCELYN LAMBERT [address] : [birth year] UNIT #: [id number] AGE: [address]: MIYA SUNSHINE MD SEX: M ORDER DR: MEDICAL IMAGING REPORT Page 1 of 1 COPY
--- NOTE | ~2016-05-16 | EKG ---
PATIENT: JOCELYN LAMBERT UNIT #: [id number] Ventricular Rate: 66 BPM Atrial Rate: 58 BPM QRS Duration: 200 ms Q-T Interval: 542 ms QTC Calculation(Bezet): 568 ms Calculated R [place]: -79 degrees Calculated T [place]: 93 degrees Diagnosis Line: Ventricular-paced rhythm Diagnosis Line: Abnormal ECG Diagnosis Line: When compared with ECG of 18-MAY-2016 05:59, Diagnosis Line: Vent. rate has decreased BY 3 BPM Diagnosis Line: Confirmed by VALENTIN RAMIREZ MD ([id number]) on 05/20/2016 Diagnosis Line: 4:34:04 PM INTERPRETING MD: JAMES WHITMAN
--- NOTE | ~2016-05-16 | CR7 ---
[facility] A Service of [facility] RADIOLOGY TEXT RESULTS PATIENT: JOCELYN LAMBERT LOCATION: [address] : [birth year] UNIT #: [id number] AGE: [address]: MIYA SUNSHINE MD SEX: M ORDER DR: [id number] [facility] [address] [facility]. [place], [place] [address] [id number] I MR#: [id number] Acc #: [id number] NAME: JOCELYN LAMBERT : 1930 SEX: M STUDY DATE/TIME: 05/20/2016 11:43 UNIT: [facility] ROOM: [facility] STUDY DESCRIPTION: CR Abdomen Single AP View Attending Physician: Francisco Villanueva M.D. Ordering Physician: Virginia Davis M.D. Primary Care Physician: No Primary Care Physician MEDICAL IMAGING REPORT This report is preliminary unless electronic signature is present EXAM Single view of the abdomen dated 05/20/2016 at 1143 hours. COMPARISON Single view abdomen dated 05/17/2016 at 1602 hours. HISTORY Dobbhoff tube placement today. FINDINGS Single view of the abdomen was obtained. Tip of the Dobbhoff tube is in the distal portion of the body of the stomach close to the antrum. It is in good position. There is nonspecific bowel gas pattern noted along with retrocardiac left lower lobe atelectasis/infiltrate. Dictated by... Luis Felipe Henao M.D. THIS IS AN ELECTRONICALLY VERIFIED REPORT Luis Felipe Henao M.D. at 05/21/2016 2:14 PM CPR/tmw TD: 05/20/2016 13:59 JOB #: [id number] MEDICAL IMAGING REPORT Page 1 of 1 COPY
--- NOTE | ~2016-05-16 | CR72 ---
[facility] A Service of [facility] & [facility] RADIOLOGY TEXT RESULTS PATIENT: JOCELYN LAMBERT LOCATION: [address]14 : [birth year] UNIT #: [id number] AGE: [address]: MIYA OLIVER MD SEX: M ORDER DR: [id number] [facility] [address] [facility]. [place], [place] [address] [id number] I MR#: [id number] Acc #: [id number] NAME: JOCELYN LAMBERT : 1930 SEX: M STUDY DATE/TIME: 05/22/2016 04:56 UNIT: [facility] ROOM: [facility] STUDY DESCRIPTION: CR Chest Single View Portable Attending Physician: Miya Oliver M.D. Ordering Physician: Floresita Marin A.P.R.N. Primary Care Physician: Primary Care Physician No MEDICAL IMAGING REPORT This report is preliminary unless electronic signature is present EXAM Portable chest 05/22 at 04:56 INDICATIONS Ventilator patient. Respiratory failure. FINDINGS AP portable chest compared with 05/21/2016. Transvenous pacing lead overlies the RV. Cardiomegaly stable. Small bilateral pleural effusions are stable. There is a persistent mild infiltrate or atelectasis in the bases. No pneumothorax. Feeding tube in the stomach. Dictated by... Williams Mcmahan Jr., M.D. THIS IS AN ELECTRONICALLY VERIFIED REPORT Williams Mcmahan Jr., M.D. at 05/22/2016 10:40 PM SARANYA/eli TD: 05/22/2016 07:21 JOB #: 1 MEDICAL IMAGING REPORT Page 1 of 1 COPY
--- NOTE | ~2016-05-16 | US77 ---
[facility] A Service [facility] RADIOLOGY TEXT RESULTS PATIENT: JOCELYN LAMBERT LOCATION: [facility]03-14 : [birth year] UNIT #: [id number] AGE: [address]: MIYA OLIVER MD SEX: M ORDER DR: [id number] [place], [place] [address] [id number] I MR#: [id number] Acc #: [id number] NAME: JOCELYN LAMBERT. : 1930 SEX: M STUDY DATE/TIME: 05/22/2016 9:23 UNIT: [facility] ROOM: [facility] STUDY DESCRIPTION: US Kidney Bilateral Complete Attending Physician: Miya Oliver M.D. Ordering Physician: Virginia Davis M.D. MEDICAL IMAGING REPORT This report is preliminary unless electronic signature is present EXAM Renal ultrasound INDICATIONS Acute renal failure, eGFR 21.2, BUN 52, creatinine 2.6. TECHNIQUE Guillermo-scale and Doppler imaging of the kidneys and bladder. COMPARISON None. FINDINGS Right kidney measures 11.4 cm. Cortical thickness is 8 mm. Bladder decompressed by a Soto catheter. Left kidney measures 9 cm, cortical thickness 10 mm. No hydronephrosis. IMPRESSION 1. No hydronephrosis. 2. Mild cortical thinning in the right kidney may represent changes of chronic renal disease. 3. Bladder decompressed by a Soto catheter. Dictated by... Luis A Breaux M.D. THIS IS AN ELECTRONICALLY VERIFIED REPORT Luis A Breaux M.D. at 05/23/2016 7:19 AM EED/pcl [facility] A Service [facility] RADIOLOGY TEXT RESULTS PATIENT: JOCELYN LAMBERT LOCATION: C[facility]2 CICCU03-14 : [birth year] UNIT #: [id number] AGE: [address]: MIYA OLIVER MD SEX: M ORDER DR: TD: 05/22/2016 21:13 JOB #: [id number] MEDICAL IMAGING REPORT Page 1 of 1 COPY
--- NOTE | ~2016-05-16 | CO ---
Unit #: [id number] #: [id number] Patient: JOCELYN LAMBERT [id number] [address] [place], [place] [address] [id number] I MR#: [id number] NAME: JOCELYN LAMBERT. ROOM: [facility] Age: 85 Sex: M Admission Date: 05/17/2016 : 1930 Attending Physician: Francisco Villanueva M.D. Primary Care Physician: No Primary Care Physician CONSULTATION REPORT 85-year-old male with a history of coronary artery disease, hypertension, peptic ulcer disease, who was admitted for congestive heart failure. He had a cardiopulmonary arrest and was intubated and we were asked to see for vent management. Apparently, he had an upper GI endoscopy done last week and was found to have multiple ulcers. He developed increased shortness of breath which was felt secondary to a respiratory infection. He was given a prescription for Levaquin. Apparently, he had been seen in an [facility] and told he had pneumonia. When the chest x-ray was re-read, he was asked to come to the emergency room. Chest x-ray was performed here in the emergency room. It looked more like congestive heart failure and he had an elevated BNP of over 2000. He was given 40 of Lasix. While in the emergency room, he had a V-fib arrest at 23:43 p.m. on 05/16/16. He had return of his pulse after less than five minutes. A chest x-ray was performed after intubation. He had a small apical right pneumothorax and chest tube was placed by ER physician. He is currently sedated and on the vent. He has been started on amiodarone and he is currently being taken to the geophysical laboratory chief for pacemaker and cardiac cath. PAST HISTORY Significant for: 1. Coronary artery disease. Last echo in 2009 revealed no LV dysfunction. 2. He has a history of essential hypertension. 3. Hyperlipidemia. 4. TIA after [place] in 2008. 5. Peripheral vascular disease. 6. Peptic ulcer disease with remote surgery. 7. Recent endoscopy showed small hiatal hernia and superficial duodenal ulcers. 8. He has a history of colon and rectal cancer requiring surgery. 9. Recent colonoscopy revealed small polyp. 10. He has had right knee surgery. 11. Hernia surgery. 12. Growth on his thyroid removed. 13. Multiple abdominal surgeries due to adhesions. ALLERGIES He has no known allergies. HOME MEDICATIONS 1. Lipitor. 2. Metoprolol. 3. Ditropan. 4. Aspirin. Unit #: [id number] #: [id number] Patient: JOCELYN LAMBERT 5. Fibercon. 6. Protonix. 7. Carafate. 8. Recent Levaquin started three days ago. FAMILY HISTORY Positive for coronary artery disease. SOCIAL HISTORY Lives with . Reformed smoker since 1968. Drinks occasional hot toddy. REVIEW OF SYSTEMS Not possible, patient intubated. PHYSICAL EXAMINATION VITAL SIGNS: Blood pressure is 108/54, pulse 75, respiratory rate 22, afebrile. T-max 100.7. HEENT: Normocephalic, atraumatic. Pupils equal, round, reactive. Sclerae nonicteric. Nasal passages patent. Orally intubated. NECK: Supple. Trachea midline. No cervical or supraclavicular lymphadenopathy. LUNGS: Reveals diminished breath sounds bilaterally. CARDIAC: Regular rate and rhythm. 1/6 systolic murmur. ABDOMEN: Nontender. Bowel sounds present. No hepatosplenomegaly. EXTREMITIES: Without clubbing, cyanosis. He has 1+ edema bilaterally. No cords palpated. NEURO: As stated - on ventilator. DIAGNOSTIC STUDIES LABORATORY: Arterial blood gases - 7.44, pCO2 33, pO2 of 256 on 100%, assist control 12, tidal volume 500, 5 of PEEP. Chemistries reviewed. Creatinine 1.5, potassium 3.1, mag 1.6. BNP 2251, troponin 5.32. Coags normal. White count 8800, hematocrit 25.0, platelet count normal. IMPRESSION 1. Acute respiratory failure. 2. Acute pulmonary edema. 3. Acute myocardial infarction. 4. Hypertension. 5. Hyperlipidemia. 6. Peripheral vascular disease. 7. Peptic ulcer disease. PLAN Vent support to maintain adequate oxygenation and ventilation. Diuresis. Preload/afterload reduction. Cardiac eval per Dr. Scott, currently going to geophysical laboratory chief. DVT prophylaxis, ulcer prophylaxis. Patient also has right pneumothorax. Chest tube has been placed. Will have thoracic surgery follow along for that. Further recommendations pending this. Unit #: [id number] #: [id number] Patient: JOCELYN LAMBERT Dictated by... Arcadio Briones M.D. KARLEE/fernando MAO: 05/17/2016 13:34 TD: 05/18/2016 06:57 JOB #: [id number] CONSULTATION REPORT Page 1 of 1 X Arcadio Briones MD CONSULTATION REPORT
--- NOTE | ~2016-05-16 | CR72 ---
[facility] A Service of [facility] & [facility] RADIOLOGY TEXT RESULTS PATIENT: JOCELYN LAMBERT LOCATION: [place] [address] : [birth year] UNIT #: [id number] AGE: [address]: Francisco Villanueva MD SEX: M ORDER DR: [id number] [facility] [address] [facility] [place] [facility]. [place], [place] [address] [id number] I MR#: [id number] Acc #: [id number] NAME: JOCELYN LAMBERT : 1930 SEX: M STUDY DATE/TIME: 05/18/2016 4:31 UNIT: [facility] ROOM: [facility] STUDY DESCRIPTION: CR Chest Single View Portable Attending Physician: Francisco Villanueva M.D. Ordering Physician: Kevan Scott M.D. Primary Care Physician: Primary Care Physician No MEDICAL IMAGING REPORT This report is preliminary unless electronic signature is present EXAM portable chest INDICATIONS Shortness of air today. PROCEDURE Frontal view chest. COMPARISON 05/17/2016 FINDINGS Heart size stable. ET tube unchanged. Dobbhoff tube is in the proximal stomach. The right-sided chest tube is stable. There is no visible pneumothorax. IMPRESSION Right-sided chest tube is stable with no visible pneumothorax. Dictated by... Luis A Breaux M.D. THIS IS AN ELECTRONICALLY VERIFIED REPORT Luis A Breaux M.D. at 05/21/2016 7:30 AM VIVI/eli TD: 05/18/2016 08:03 JOB #: [id number] MEDICAL IMAGING REPORT Page 1 of 1 COPY
--- NOTE | ~2016-05-16 | A ---
[facility] Nutrition Therapy DATE: 05/18/16 Patient: JOCELYN LAMBERT Physician: GABRIELA Address: [address] [facility] Room/Bed: [address], Zip: [place] [address] Admit Date: 05/17/16 Date of : [birth year] Height: 6 0 Weight: 244 111 NUTRITIONAL ASSESSMENT: REASON: NPO in ICU 85 yo male admitted for CHF, ventricular fibrillation, full arrest PMH: CAD, HTN, peptic ulcer disease, HLD, TIA following [facility] (2008), h/o colon and rectal cancer, R knee surgery, hernia repair, peripheral vascular disease Anthropometrics: Ht: 6'0" Wt: 110.9 kg (244#) BMI: 33.2 Labs: K+ 3.4, Gluc 122, Creat 1.6, Ca++ 7.9, AST 50, GFR 38.2 Meds: Propofol @ 9.9 mL/hr, D5%, Zofran, K, Mg, Furosemide, Protonix I/O & Bowel function: 1582/5470, last BM unknown Skin Integrity: Sx scar (mid abd area) Edema: BLE/ankles 1+ Estimated Nutrition Needs: 6923-7682 kcal (15-20 kcal/kg) 89-111 g protein (0.8-1.0 g/kg) Assessment: Chart reviewed, events noted. Pt is currently intubated in ICU. Pt is receiving Propofol @ 9.9 mL/hr, which is providing 261 kcal from lipids. Per RN, once extubated, plans for pt transfer to [facility] for permanent pacer. See recommendations below. Dx: Inadequate oral intake RT current clinical condition AEB NPO status, intubated. Intervention: 1. NPO 2. Enteral nutrition Monitoring, Evaluation and Goals: 1. Enteral nutrition; provide >80% of estimated needs and goal volume x 24 hrs 2. Weight; prevent unintenional weight loss, promote gradual weight loss 3. Labs; WNL Recommendations: 1. Once medically feasible and while propofol is running, initiate enteral nutrition with Jevity 1.5 @ 20 mL/hr + 30 mL prostat BID, advance 10 mL q 6 hrs to goal rate of 45 mL/hr [facility] Nutrition Therapy DATE: 05/18/16 Patient: JOCELYN LAMBERT Physician: GABRIELA Address: [address] [place] [address] Room/Bed: [address], Zip: [place] [address] Admit Date: 05/17/16 Date of : [birth year] Height: 6 0 Weight: 244 111 + 30 mL prostat BID. This will provide: 2081 kcal/ 99 g protein/ 821 mL free H2O. Add free h20 flushes per MD 2. Once medically feasible and when propofol is d/c'd, initate enteral nutrition with Jevity 1.5 @ 20 mL/hr, advance 10 mL q 6 hrs to goal rate of 60 mL/hr. This will provide: 2160 kcal/ 92 g protein/ 1094 mL free H2O. Add free h20 flushes per MD 3. Once pt extubated, recommend to advance diet per SCHEDULER CONVEYOR + HH diet Pt is at a moderate/severe nutritional risk. RD will f/u per protocol. Respectfully, Radha Luis, Nursing Student Corazon Abernathy MS, RD, LD Food and Nutritional Services [facility] cc: client file
--- NOTE | ~2016-05-16 | CR72 ---
[facility] A Service [facility] RADIOLOGY TEXT RESULTS PATIENT: JOCELYN LAMBERT LOCATION: [facility] : [birth year] UNIT #: [id number] AGE: [address]: Francisco Villanueva MD SEX: M ORDER DR: [id number] [facility] [address] [place], [place] [address] [id number] I MR#: [id number] Acc #: [id number] NAME: JOCELYN LAMBERT. : 1930 SEX: M STUDY DATE/TIME: 05/17/2016 2:07 UNIT: [facility] ROOM: [id number] STUDY DESCRIPTION: CR Chest Single View Portable Attending Physician: Alannah Skinner M.D. Ordering Physician: Frantz Ramos M.D. Primary Care Physician: Primary Care Physician No MEDICAL IMAGING REPORT This report is preliminary unless electronic signature is present EXAM Portable chest. INDICATIONS Chest tube followup. PROCEDURE Frontal view chest. COMPARISON 05/17/2016 at 0225 hours. FINDINGS There has been interval placement of a right-sided chest tube. Previously demonstrated right sided pneumothorax is significantly improved. There is probably a tiny amount of apical lucency remaining. The ET tube is stable. IMPRESSION Placement of a right-sided chest tube with improvement of the right-sided pneumothorax. Probably tiny persistent apical right-sided pneumothorax. Dictated by... Luis A Breaux M.D. THIS IS AN ELECTRONICALLY VERIFIED REPORT Luis A Breaux M.D. at 05/21/2016 7:30 AM EED/torres TD: 05/17/2016 04:30 JOB #: [id number] [facility] A Service [facility] RADIOLOGY TEXT RESULTS PATIENT: JOCELYN LAMBERT LOCATION: [facility] : [birth year] UNIT #: [id number] AGE: [address]: Francisco Villanueva MD SEX: M ORDER DR: MEDICAL IMAGING REPORT Page 1 of 1 COPY
--- NOTE | ~2016-05-16 | CO ---
Unit #: [id number] #: [id number] Patient: JOCELYN LAMBERT [id number] [facility]. [place], [place] [address] [id number] I MR#: [id number] NAME: JOCELYN LAMBERT. ROOM: [facility] Age: 85 Sex: M Admission Date: 05/17/2016 : 1930 Attending Physician: Francisco Villanueva M.D. Primary Care Physician: No Primary Care Physician CONSULTATION REPORT REASON FOR CONSULT Right pneumothorax. HISTORY OF PRESENT ILLNESS Mr. Jocelyn Lambert is an 85-year-old male who presented to [facility] with congestive heart failure. He had experienced symptoms of dyspnea on exertion for approximately 1 week. He developed ventricular fibrillation in the emergency room, underwent a cardiac arrest with resuscitation with resulting right pneumothorax related to rib fracture. Dr. Javier was consulted for evaluation of his chest tube. Following chest tube placement, he was taken to the labor/excavator and underwent evaluation by cardiac catheterization by Dr. Scott. His ejection fraction was found to be 10% to 15%, and he has multivessel cardiac disease. He also has a transvenous pacemaker as he is being evaluated in the ICU bed 1. PAST MEDICAL HISTORY Past medical history includes coronary artery disease undergoing cardiac catheterization in 2008 with intracoronary stenting, hypertension, hyperlipidemia, stroke in 2008, peptic ulcer disease, hiatal hernia with EGD last week, history of abdominal laparotomy for gastric ulcer, history of right knee surgery. SOCIAL HISTORY The patient is a remote smoker; quit in 1968. History of occasional alcoholic beverage socially. He lives with his . REVIEW OF SYSTEMS Unable to obtain due to the patient being on ventilator. PHYSICAL EXAMINATION VITAL SIGNS: Temperature is 98.8, heart rate 44 with transvenous pacer and in a paced rhythm. Respiratory rate 18, blood pressure 121/58. GENERAL: Patient is an 85-year-old male who is orally intubated on the ventilator. NEUROLOGIC/PSYCHIATRIC: Unable to assess due the patient's altered mental status. HEENT: Normocephalic. No facial asymmetry with the exception of oral intubation. NECK: Supple. Trachea midline. No thyromegaly. LYMPHATIC: No palpable cervical, supraclavicular or axillary lymphadenopathy. LUNGS: Bilaterally decreased in the bases with few crackles noted. CARDIOVASCULAR: S1, S2 without rub, without murmur. No S3 or S4. No Unit #: [id number] #: [id number] Patient: JOCELYN LAMBERT peripheral edema. The patient has paced rhythm on transvenous pacer. ABDOMEN: Round, soft. Bowel sounds positive. Nontender. No pulsatile masses or hepatosplenomegaly. EXTREMITIES: His extremities are warm and dry. There is no edema. No clubbing and no cyanosis. DIAGNOSTIC STUDIES LABORATORY: BUN 22, creatinine 1.5, magnesium 1.6, sodium 139, potassium 3.1 (has been treated). WBC 8.8, platelets 144, hemoglobin 8.1, hematocrit 25. IMPRESSION Iatrogenic right pneumothorax with associated rib fracture following cardiac arrest status post chest tube placement. Chest tube with 120 mL in the chamber with no evidence of air leak. PLAN Followup tomorrow morning with chest x-ray. Thank you very much for allowing us to participate in the care of your patient. If you have any questions, please do not hesitate to call. NOTE: Dr. Javier was present, met with and examined Mr. Lambert. He reviewed chest x-rays before and after chest tube placement. Dictated by... Floresita Marin A.P.R.N. for Tomy Cha/pérez TD: 05/17/2016 14:11 JOB #: [id number] CONSULTATION REPORT Page 1 of 1 X Floresita Marin APRN X CONSULTATION REPORT
--- NOTE | ~2016-05-16 | FU ---
[facility] Nutrition Therapy DATE: 05/22/16 Patient: JOCELYN LAMBERT Physician: GABRIELA Address: [address] [facility] Room/Bed: [address], Zip: [place] [address] Admit Date: 05/17/16 Date of : [birth year] Height: 6 0 Weight: 240 109 NUTRITION MONITORING/FOLLOW-UP: Reason: Enteral nutrition f/u Admitting Dx: 85 y/o male admitted with CHF, full arrest Anthropometrics: Ht: 72", admission wt: 110.9 kg, current wt: 109.0 kg, BMI: 33 (Stage I obese) Labs: BUN 52, Creat 2.6, GFR 21.2, Na/K/Mg/Phos WNL Meds: Coreg, Dopamine, Zofran, PPI, MgSO4, KCL, NACL I&O's: 1169/2074, last BM unknown Skin: Old surgical scar midline abdomen, trace edema BLE/ankles Estimated Nutrition Needs: 4731-1854 kcals per day (15-20 kcals/kg admission wt) 89-111 g protein per day (0.8-1.0 g/kg admission wt) Fluids consistent with kcal needs or per MD Assessment: Chart reviewed, events noted. Patient extubated to 2L nasal cannula yesterday, very confused and agitated. Failed swallow eval yesterday and therefore remains on EN which was started on 05/20 with Nepro. RN unsure who ordered Nepro, RD had recommended Jevity 1.[address] reviewed chart but could not find order for Nepro- is not indicated for this patient as his K/Phos are WNL and he has VIELKA. RD previously rec Jevity 1.5 goal of 60 ml/hr without sedation- Nepro currently running @ 60 ml/hr providing 85% goal volume x 24 hours, however the patient is being overfed. Propofol has been D/C. RD informed RN verbally of new recs, see below. Previous nutrition goal met, see additional new nutrition dx. Dx: 1) Inadequate oral intake r/t clinical condition AEB NPO, intubation, failed CRITICAL CARE EDUCATOR eval - ACTIVE 2) Excessive enteral nutrition infusion r/t inappropriate EN formula AEB Nepro @ 60 ml/hr providing 118% estimated kcal needs. Intervention: Change to Jevity vs decrease rate with Nepro (RN to ask MD) Monitoring, Evaluation and Goals: MET 1. EN to provide > 80% goal volume with appropriate formula. 2. Improvement in labs (BUN, Creat), lytes will remain WNL. [facility] Nutrition Therapy DATE: 05/22/16 Patient: JOCELYN LAMBERT Physician: GABRIELA Address: [address] [place] [address] Room/Bed: [address], Zip: [place] [address] Admit Date: 05/17/16 Date of : [birth year] Height: 6 0 Weight: 240 109 3. Gradual weight loss towards a healthy BMI range once appropriate. Monitor: Per protocol, criteria to determine if above goals met Recommendations: 1. Nepro formula not indicated for this patient; suggest changing formula to Jevity 1.5 goal rate 60 ml/hr per DHT to provide 2160 kcals, 92 g protein and 1094 ml water. Free water flushes per MD. 2. If MD wishes to continue feeds with Nepro suggest decreasing rate to 50 ml/hr to prevent overfeeding the patient. This would provide 2160 kcals, 97 g protein and 876 ml water. 3. Continue to monitor labs; BUN, Creatinine, lytes, glucose. 4. Once mental status is more appropriate suggest CRITICAL CARE EDUCATOR to re-evaluate and advance PO diet per their recs; RD suggesting healthy heart diet. Status: Moderate nutrition risk Respectfully, Galina Horton, RD, LD Food and Nutritional Services [facility] cc: client file
--- NOTE | ~2016-05-16 | DS ---
Unit #: [id number] #: [id number] Patient: JOCELYN LAMBERT [id number] [address] [address] [id number] I MR#: [id number] NAME: JOCELYN LAMBERT. ROOM: [facility] Age: 85 Sex: M Admission Date: 05/17/2016 : 1930 Discharge Date: 05/22/2016 Attending Physician: Mao Oliver M.D. Primary Care Physician: No Primary Care Physician DISCHARGE SUMMARY DISCHARGE DIAGNOSES 1. Status post ventricular fibrillation arrest. 2. Non-ST elevation myocardial infarction. 3. Acute systolic congestive heart failure, ejection fraction 15%. 4. Acute kidney injury. 5. Anemia. 6. 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 7. Hypertension. 8. Hyperlipidemia. 9. PVD. 10. TIA. 11. Left pleural effusion. 12. Status post pneumothorax secondary to rib fracture. HOSPITAL COURSE The patient is an 85-year-old male with a history of coronary artery disease, hypertension and peptic ulcer disease and was admitted to the hospital on 05/17/2016 secondary to the increased shortness of breath. The patient had endoscopy a week prior to admission that showed superficial ulcer. The [facility] and told that he had pneumonia. When chest x-ray was reviewed he was asked to come to the emergency room. Chest x-ray showed congestive heart failure and elevated BNP of more than 2000. He was given 40 mg of Lasix while in the emergency room and he had a V-fib arrest at 23:43 p.m. on 05/16/2016. He had a return of his pulse after less than 5 minutes. Chest x-ray was performed after intubation. He had a small epicardial pneumothorax and chest tube was placed by the emergency room physician. The patient was admitted to the ICU. See history and physical for the detailed history and physical. The patient has been placed on amiodarone drip. The patient had an ejection fraction of 15%. The patient was extubated last Saturday. The patient had removal of the chest tube yesterday. The patient is dependent on transvenous pacemaker. The patient has been stabilized to be transferred to the [facility] for atrial implantable cardioverter defibrillator/pacemaker dependence. PHYSICAL EXAMINATION GENERAL: On examination, the patient is lying on the bed, not in acute distress. VITALS: Temperature 99.5, pulse 69, respiratory rate 19, blood pressure 147/50. LUNGS: Decreased air entry at the bases. HEART: Regular rate and rhythm. Positive for murmur. ABDOMEN: Soft. EXTREMITIES: No cyanosis. No clubbing. No pedal edema. Unit #: [id number] #: [id number] Patient: JOCELYN LAMBERTENT: The patient has an NG tube placed and transvenous pacemaker in the right IJ and two peripheral liens. DIAGNOSTIC DATA LABORATORY: Glucose 94, BUN 52, creatinine 2.6, sodium 140, potassium 4.1, chloride 106, bicarb 28, calcium 7.8. Troponin 1.19, INR 1.2, white blood cell count 9.3, hemoglobin 7.5, hematocrit 23.5, platelets 168. IMAGING: Chest x-ray shows small bilateral pleural effusion, now stable. There is a persistent mild infiltrate or atelectasis in the base. No pneumothorax. Feeding tube in the stomach. CONSULTANTS Cardiology with Dr. Antonio. Renal with Dr. Davis. Pulmonary with Dr. Briones. DISCHARGE MEDICATIONS 1. Aspirin 81 mg daily. 2. Percocet q.4 h. 3. Protonix 40 mg b.i.d. 4. Lovenox 30 mg subcutaneous. 5. Tylenol. 6. Zofran. 7. Atropine p.r.n. 8. Lipitor 80 mg at bedtime. 9. Amiodarone will be turned off for transfer. DISPOSITION The patient is transferred to [facility] in stable condition. Accepting physician is Dr. Weiss in cardiology service at [facility]. Dictated by... Tomy Valentino TD: 05/22/2016 12:25 JOB #: [id number] DISCHARGE SUMMARY Page 1 of 1 X X DISCHARGE SUMMARY
[~2016-05-16 19:25] MED LIST changes: -ASPIRIN81 MG PO; -CARAFATE PO; -DITROPAN XL10 MG PO; -FIBER500 MG PO; -IRON SUPPLEMENT; -LEVAQUIN750 M1 PO; -METOPROLOL TAR25 MG PO; -NORCO; -VITAMIN D400 UNI2 PO
[2016-05-16 20:30] LABS: BASOPHIL% 0.6 % (0-2.5); EOSINOPHIL# 0.1 X10e3 (0-0.7); HEMOGLOBIN 9.9 gm/dL (13.0-16.0); LYMPHOCYTE# 0.9 X10e3 (1.0-3.5); LYMPHOCYTE% 11.8 % (17.0-45.0); MEAN CELL VOLUME 84.7 FL (83-96); MEAN CORPUSCULAR HGB CONC 31.9 g/dL (30-36); MEAN PLATELET VOLUME 8.2 FL (6.5-11.5); MONOCYTE# 0.8 X10e3 (0-1.0); MONOCYTE% 10.6 % (3.0-12.0); NEUTROPHIL# 5.6 X10e3 (1.5-7.1); PLATELET COUNT 182 X10e3 (140-420); RED BLOOD COUNT 3.66 X10e (3.90-5.60); RED CELL DISTRIBUTION WIDTH 14.8 % (11.0-15.5); WHITE BLOOD COUNT 7.3 X10e3 (4.0-10.5)
[2016-05-16 20:34] LABS: POC - CKMB 1.9 ng/mL (0.0-7.9); POC - TROPONIN <0.05 ng/mL (<=0.05)
[2016-05-16 20:38] LABS: DIFF IND NO
[2016-05-16 20:46] LABS: INR 1.3; PROTHROMBIN TIME (PATIENT) 13.4 SECONDS (9.6-11.5)
[2016-05-16 20:57] LABS: ALBUMIN SERUM 4.1 g/dL (3.5-5.0); BILIRUBIN, DIRECT 0.3 mg/dL (0.0-0.2); BILIRUBIN,INDIRECT 1.4 mg/dL (0.0-0.9); BILIRUBIN,TOTAL 1.7 mg/dL (0.2-2.0); BUN/CREATININE RATIO 14.66; CALCIUM SERUM 8.6 mg/dL (8.4-10.2); CREATININE SERUM 1.5 mg/dL (0.6-1.4); GLOM FILT RATE Estimated 41.3 mL/min (>60); POTASSIUM 3.6 mmol/L (3.5-5.1); PROTEIN TOTAL SERUM 6.7 g/dL (6.0-8.3)
[2016-05-17 01:06] LABS: ARTERIAL BLD GAS O2 SATURATION 91.7 % (90.0-100.0); ARTERIAL BLOOD GAS ALLEN TEST NORMAL; ARTERIAL BLOOD GAS ART SITE RIGHT RADIAL; ARTERIAL BLOOD GAS CARBOXY HB 0.9 %sat (0.0-9.0); ARTERIAL BLOOD GAS DELIVERY VENT; ARTERIAL BLOOD GAS HCO3 18.7 mmol/L; ARTERIAL BLOOD GAS MET HB 1.4 %sat (0.0-2.0); ARTERIAL BLOOD GAS PCO2 34.9 mmHg (35.0-45.0); ARTERIAL BLOOD GAS PO2 72.8 mmHg (80.0-100); ARTERIAL BLOOD GAS VENT MODE A/C; ARTERIAL BLOOD GAS pH 7.337 (7.350-7.450); ARTERIAL DRAW? YES
[2016-05-17] MEDS ORDERED: CARAFATE PO (02:38)
[2016-05-17] MEDS ORDERED: LEVAQUIN750 M1 PO (02:38)
[2016-05-17 02:52] LABS: POC - CKMB 1.9 ng/mL (0.0-7.9); POC - TROPONIN 0.18 ng/mL (<=0.05)
[2016-05-17 04:17] LABS: ARTERIAL BLD GAS O2 SATURATION 97.9 % (90.0-100.0); ARTERIAL BLOOD GAS CARBOXY HB 0.8 %sat (0.0-9.0); ARTERIAL BLOOD GAS HCO3 22.9 mmol/L; ARTERIAL BLOOD GAS MET HB 1.5 %sat (0.0-2.0); ARTERIAL BLOOD GAS PCO2 33.1 mmHg (35.0-45.0); ARTERIAL BLOOD GAS pH 7.448 (7.350-7.450)
[2016-05-17 04:48] LABS: ARTERIAL BLOOD GAS ALLEN TEST NORMAL; ARTERIAL BLOOD GAS ART SITE RIGHT RADIAL; ARTERIAL BLOOD GAS DELIVERY VENT; ARTERIAL BLOOD GAS VENT MODE A/C; ARTERIAL DRAW? YES
[2016-05-17 05:40] LABS: URINE SOURCE CATH
[2016-05-17 05:44] LABS: URINE APPEARANCE CLEAR; URINE BILIRUBIN NEG (NEG); URINE BLOOD 1+ (NEG); URINE COLOR YELLOW; URINE GLUCOSE NEG (NEG); URINE KETONE NEG (NEG); URINE LEUKOCYTE ESTERASE NEG (NEG); URINE NITRATE NEG (NEG); URINE PROTEIN NEG (NEG); URINE SPECIFIC GRAVITY 1.009 (1.003-1.035); URINE UROBILINOGEN 0.2 MG/DL (NEG)
[2016-05-17 05:46] LABS: CULTURE INDICATED? NO; URBCS1 AUWI 0-2 /[HPF] (0-2); URINE BACTERIA AUWI NEG (NEGATIVE); URINE SQUAMOUS EPITHELIAL CELL NONE SEEN /[HPF]; UWBCS1 AUWI 0-2 (0-5)
[2016-05-17 08:20] LABS: BASOPHIL% 0.2 % (0-2.5); EOSINOPHIL% 0.2 % (0.0-7.0); HEMOGLOBIN 8.1 gm/dL (13.0-16.0); LYMPHOCYTE# 0.5 X10e3 (1.0-3.5); LYMPHOCYTE% 5.2 % (17.0-45.0); MEAN CELL VOLUME 84.3 FL (83-96); MEAN CORPUSCULAR HEMOGLOBIN 27.4 PG (28-34); MEAN CORPUSCULAR HGB CONC 32.5 g/dL (30-36); MEAN PLATELET VOLUME 8.3 FL (6.5-11.5); MONOCYTE% 11.2 % (3.0-12.0); NEUTROPHIL# 7.4 X10e3 (1.5-7.1); NEUTROPHIL% 83.2 % (40-75); PLATELET COUNT 144 X10e3 (140-420); RED BLOOD COUNT 2.97 X10e (3.90-5.60); RED CELL DISTRIBUTION WIDTH 14.9 % (11.0-15.5); WHITE BLOOD COUNT 8.8 X10e3 (4.0-10.5)
[2016-05-17 08:28] LABS: DIFF IND NO
[2016-05-17 08:47] LABS: ALBUMIN SERUM 3.1 g/dL (3.5-5.0); BILIRUBIN,TOTAL 1.7 mg/dL (0.2-2.0); BUN/CREATININE RATIO 14.66; CALCIUM SERUM 7.7 mg/dL (8.4-10.2); CREATININE SERUM 1.5 mg/dL (0.6-1.4); GLOM FILT RATE Estimated 41.3 mL/min (>60); MAGNESIUM 1.6 mg/dL (1.6-3.0); POTASSIUM 3.1 mmol/L (3.5-5.1); PROTEIN TOTAL SERUM 5.2 g/dL (6.0-8.3)
[2016-05-17 09:08] LABS: %MB 5.6 % (0.0-4.0)
[2016-05-17 11:57] LABS: CHOLESTEROL 67 mg/dL (0-200); HDL CHOLESTEROL 29 mg/dL (29-75); LDL CHOLESTEROL 29 mg/dL (-130); LDL/HDL RATIO 1 RATIO (0-4); TRIGLYCERIDES 46 mg/dL (10-160)
[2016-05-17 14:46] LABS: %MB 6.6 % (0.0-4.0)
[2016-05-17 20:54] LABS: %MB 6.7 % (0.0-4.0); MB 25.3 ng/ml
[2016-05-18 04:37] LABS: BASOPHIL% 0.3 % (0-2.5); EOSINOPHIL# 0.1 X10e3 (0-0.7); EOSINOPHIL% 0.6 % (0.0-7.0); HEMATOCRIT 31.4 % (38.0-50.0); HEMOGLOBIN 10.2 gm/dL (13.0-16.0); LYMPHOCYTE# 0.5 X10e3 (1.0-3.5); MEAN CELL VOLUME 83.8 FL (83-96); MEAN CORPUSCULAR HEMOGLOBIN 27.1 PG (28-34); MEAN CORPUSCULAR HGB CONC 32.4 g/dL (30-36); MEAN PLATELET VOLUME 8.1 FL (6.5-11.5); MONOCYTE# 1.1 X10e3 (0-1.0); MONOCYTE% 11.2 % (3.0-12.0); NEUTROPHIL# 8.4 X10e3 (1.5-7.1); NEUTROPHIL% 82.9 % (40-75); PLATELET COUNT 159 X10e3 (140-420); RED BLOOD COUNT 3.75 X10e (3.90-5.60); WHITE BLOOD COUNT 10.1 X10e3 (4.0-10.5)
[2016-05-18 05:01] LABS: ALBUMIN SERUM 3.8 g/dL (3.5-5.0); BILIRUBIN,TOTAL 1.7 mg/dL (0.2-2.0); BUN/CREATININE RATIO 13.12; CALCIUM SERUM 7.9 mg/dL (8.4-10.2); CREATININE SERUM 1.6 mg/dL (0.6-1.4); GLOM FILT RATE Estimated 38.2 mL/min (>60); MAGNESIUM 1.9 mg/dL (1.6-3.0); POTASSIUM 3.4 mmol/L (3.5-5.1); PROTEIN TOTAL SERUM 6.5 g/dL (6.0-8.3)
[2016-05-18 05:13] LABS: %MB 4.9 % (0.0-4.0)
[2016-05-18 05:17] LABS: DIFF IND NO
[2016-05-18 05:21] LABS: ARTERIAL BLD GAS O2 SATURATION 98.4 % (90.0-100.0); ARTERIAL BLOOD GAS CARBOXY HB 0.6 %sat (0.0-9.0); ARTERIAL BLOOD GAS HCO3 27.2 mmol/L; ARTERIAL BLOOD GAS PCO2 40.8 mmHg (35.0-45.0); ARTERIAL BLOOD GAS pH 7.432 (7.350-7.450)
[2016-05-18 05:27] LABS: ARTERIAL BLOOD GAS ALLEN TEST NORMAL; ARTERIAL BLOOD GAS ART SITE LEFT RADIAL; ARTERIAL BLOOD GAS DELIVERY VENT; ARTERIAL BLOOD GAS VENT MODE AC; ARTERIAL DRAW? YES
[2016-05-18 12:53] LABS: ARTERIAL BLD GAS O2 SATURATION 98.6 % (90.0-100.0); ARTERIAL BLOOD GAS ALLEN TEST NORMAL; ARTERIAL BLOOD GAS ART SITE LEFT RADIAL; ARTERIAL BLOOD GAS CARBOXY HB 0.1 %sat (0.0-9.0); ARTERIAL BLOOD GAS DELIVERY VENT; ARTERIAL BLOOD GAS HCO3 25.2 mmol/L; ARTERIAL BLOOD GAS MET HB 1.1 %sat (0.0-2.0); ARTERIAL BLOOD GAS PCO2 35.1 mmHg (35.0-45.0); ARTERIAL BLOOD GAS pH 7.466 (7.350-7.450); ARTERIAL DRAW? YES
[2016-05-18 12:54] LABS: ARTERIAL BLOOD GAS VENT MODE CPAP
[2016-05-18 19:41] LABS: HEMATOCRIT 28.4 % (38.0-50.0)
[2016-05-19 00:20] LABS: HEMATOCRIT 25.4 % (38.0-50.0); HEMOGLOBIN 8.1 gm/dL (13.0-16.0)
[2016-05-19 05:45] LABS: HEMATOCRIT 25.8 % (38.0-50.0); HEMOGLOBIN 8.1 gm/dL (13.0-16.0)
[2016-05-19 06:29] LABS: MAGNESIUM 2.7 mg/dL (1.6-3.0); POTASSIUM 4.3 mmol/L (3.5-5.1)
[2016-05-19 07:12] LABS: BASOPHIL% 0.3 % (0-2.5); EOSINOPHIL% 0.1 % (0.0-7.0); HEMOGLOBIN 8.1 gm/dL (13.0-16.0); LYMPHOCYTE# 0.5 X10e3 (1.0-3.5); LYMPHOCYTE% 4.5 % (17.0-45.0); MEAN CELL VOLUME 85.5 FL (83-96); MEAN CORPUSCULAR HEMOGLOBIN 26.6 PG (28-34); MEAN CORPUSCULAR HGB CONC 31.2 g/dL (30-36); MEAN PLATELET VOLUME 9.1 FL (6.5-11.5); MONOCYTE# 1.3 X10e3 (0-1.0); MONOCYTE% 12.1 % (3.0-12.0); NEUTROPHIL# 9.1 X10e3 (1.5-7.1); PLATELET COUNT 173 X10e3 (140-420); RED BLOOD COUNT 3.04 X10e (3.90-5.60); RED CELL DISTRIBUTION WIDTH 15.2 % (11.0-15.5); WHITE BLOOD COUNT 10.9 X10e3 (4.0-10.5)
[2016-05-19 07:13] LABS: DIFF IND NO; HEMATOCRIT 25.8 % (38.0-50.0)
[2016-05-19 07:44] LABS: HEMATOCRIT 24.1 % (38.0-50.0); HEMOGLOBIN 7.5 gm/dL (13.0-16.0); MEAN CELL VOLUME 86.6 FL (83-96); MEAN CORPUSCULAR HEMOGLOBIN 26.8 PG (28-34); MEAN PLATELET VOLUME 8.9 FL (6.5-11.5); RED BLOOD COUNT 2.79 X10e (3.90-5.60); RED CELL DISTRIBUTION WIDTH 15.1 % (11.0-15.5); WHITE BLOOD COUNT 10.6 X10e3 (4.0-10.5)
[2016-05-19 08:01] LABS: INR 1.2; PARTIAL THROMBOPLASTIN TIME 37.5 SECONDS (23.5-31.3); PROTHROMBIN TIME (PATIENT) 12.7 SECONDS (9.6-11.5)
[2016-05-19 09:03] LABS: BUN/CREATININE RATIO 13.33; CALCIUM SERUM 7.8 mg/dL (8.4-10.2); CREATININE SERUM 2.1 mg/dL (0.6-1.4); GLOM FILT RATE Estimated 27.5 mL/min (>60); POTASSIUM 4.4 mmol/L (3.5-5.1)
[2016-05-19 12:01] LABS: BASOPHIL% 0.3 % (0-2.5); EOSINOPHIL% 0.1 % (0.0-7.0); HEMATOCRIT 26.7 % (38.0-50.0); HEMOGLOBIN 8.6 gm/dL (13.0-16.0); LYMPHOCYTE# 0.5 X10e3 (1.0-3.5); LYMPHOCYTE% 4.3 % (17.0-45.0); MEAN CELL VOLUME 87.8 FL (83-96); MEAN CORPUSCULAR HEMOGLOBIN 28.2 PG (28-34); MEAN CORPUSCULAR HGB CONC 32.1 g/dL (30-36); MEAN PLATELET VOLUME 8.5 FL (6.5-11.5); MONOCYTE# 1.9 X10e3 (0-1.0); MONOCYTE% 16.2 % (3.0-12.0); NEUTROPHIL# 9.4 X10e3 (1.5-7.1); NEUTROPHIL% 79.1 % (40-75); PLATELET COUNT 150 X10e3 (140-420); RED BLOOD COUNT 3.04 X10e (3.90-5.60); WHITE BLOOD COUNT 11.9 X10e3 (4.0-10.5)
[2016-05-19 12:02] LABS: DIFF IND NO
[2016-05-19 13:01] LABS: %MB 1.8 % (0.0-4.0); MB 2.6 ng/ml
[2016-05-19 16:43] LABS: BASOPHIL% 0.3 % (0-2.5); EOSINOPHIL% 0.1 % (0.0-7.0); HEMATOCRIT 25.9 % (38.0-50.0); HEMOGLOBIN 8.2 gm/dL (13.0-16.0); LYMPHOCYTE# 0.4 X10e3 (1.0-3.5); LYMPHOCYTE% 3.1 % (17.0-45.0); MEAN CELL VOLUME 87.5 FL (83-96); MEAN CORPUSCULAR HEMOGLOBIN 27.7 PG (28-34); MEAN CORPUSCULAR HGB CONC 31.6 g/dL (30-36); MEAN PLATELET VOLUME 8.3 FL (6.5-11.5); MONOCYTE# 1.9 X10e3 (0-1.0); MONOCYTE% 14.8 % (3.0-12.0); NEUTROPHIL# 10.5 X10e3 (1.5-7.1); NEUTROPHIL% 81.7 % (40-75); PLATELET COUNT 161 X10e3 (140-420); RED BLOOD COUNT 2.96 X10e (3.90-5.60); RED CELL DISTRIBUTION WIDTH 16.5 % (11.0-15.5); WHITE BLOOD COUNT 12.9 X10e3 (4.0-10.5)
[2016-05-19 16:48] LABS: DIFF IND NO
[2016-05-19 20:24] LABS: BASOPHIL% 0.2 % (0-2.5); EOSINOPHIL% 0.1 % (0.0-7.0); HEMOGLOBIN 7.7 gm/dL (13.0-16.0); LYMPHOCYTE# 0.6 X10e3 (1.0-3.5); MEAN CELL VOLUME 87.6 FL (83-96); MEAN CORPUSCULAR HEMOGLOBIN 27.9 PG (28-34); MEAN CORPUSCULAR HGB CONC 31.9 g/dL (30-36); MEAN PLATELET VOLUME 8.9 FL (6.5-11.5); MONOCYTE# 1.7 X10e3 (0-1.0); MONOCYTE% 13.6 % (3.0-12.0); NEUTROPHIL# 9.9 X10e3 (1.5-7.1); NEUTROPHIL% 81.1 % (40-75); PLATELET COUNT 157 X10e3 (140-420); RED BLOOD COUNT 2.74 X10e (3.90-5.60); RED CELL DISTRIBUTION WIDTH 16.8 % (11.0-15.5); WHITE BLOOD COUNT 12.2 X10e3 (4.0-10.5)
[2016-05-19 20:26] LABS: DIFF IND YES
[2016-05-19 20:45] LABS: ANISOCYTOSIS MOD; BURR CELLS PRESENT; PLATELET ESTIMATE NORMAL (NORMAL); POIKILOCYTOSIS MOD
[2016-05-20 05:04] LABS: BASOPHIL% 0.2 % (0-2.5); EOSINOPHIL% 0.1 % (0.0-7.0); HEMATOCRIT 26.2 % (38.0-50.0); HEMOGLOBIN 8.5 gm/dL (13.0-16.0); LYMPHOCYTE# 0.6 X10e3 (1.0-3.5); LYMPHOCYTE% 5.2 % (17.0-45.0); MEAN CELL VOLUME 86.5 FL (83-96); MEAN CORPUSCULAR HGB CONC 32.3 g/dL (30-36); MEAN PLATELET VOLUME 8.4 FL (6.5-11.5); MONOCYTE# 1.8 X10e3 (0-1.0); MONOCYTE% 15.5 % (3.0-12.0); NEUTROPHIL# 9.2 X10e3 (1.5-7.1); PLATELET COUNT 146 X10e3 (140-420); RED BLOOD COUNT 3.03 X10e (3.90-5.60); RED CELL DISTRIBUTION WIDTH 16.4 % (11.0-15.5); WHITE BLOOD COUNT 11.6 X10e3 (4.0-10.5)
[2016-05-20 05:15] LABS: DIFF IND NO
[2016-05-20 07:56] LABS: BUN/CREATININE RATIO 13.87; CALCIUM SERUM 7.7 mg/dL (8.4-10.2); CREATININE SERUM 3.1 mg/dL (0.6-1.4); GLOM FILT RATE Estimated 17.2 mL/min (>60); POTASSIUM 4.9 mmol/L (3.5-5.1)
[2016-05-20 08:41] LABS: PHOSPHOROUS 5.8 mg/dL (2.5-4.6)
[2016-05-20 10:00] LABS: BASOPHIL% 0.1 % (0-2.5); DIFF IND NO; EOSINOPHIL# 0.1 X10e3 (0-0.7); EOSINOPHIL% 0.5 % (0.0-7.0); HEMATOCRIT 23.1 % (38.0-50.0); HEMOGLOBIN 7.5 gm/dL (13.0-16.0); LYMPHOCYTE# 0.6 X10e3 (1.0-3.5); LYMPHOCYTE% 5.7 % (17.0-45.0); MEAN CELL VOLUME 86.2 FL (83-96); MEAN CORPUSCULAR HEMOGLOBIN 28.1 PG (28-34); MEAN CORPUSCULAR HGB CONC 32.6 g/dL (30-36); MEAN PLATELET VOLUME 8.6 FL (6.5-11.5); MONOCYTE# 1.6 X10e3 (0-1.0); MONOCYTE% 15.2 % (3.0-12.0); NEUTROPHIL# 8.2 X10e3 (1.5-7.1); NEUTROPHIL% 78.5 % (40-75); PLATELET COUNT 138 X10e3 (140-420); RED BLOOD COUNT 2.68 X10e (3.90-5.60); RED CELL DISTRIBUTION WIDTH 16.4 % (11.0-15.5); WHITE BLOOD COUNT 10.4 X10e3 (4.0-10.5)
[2016-05-20 13:13] LABS: BASOPHIL% 0.3 % (0-2.5); EOSINOPHIL# 0.1 X10e3 (0-0.7); EOSINOPHIL% 0.8 % (0.0-7.0); HEMATOCRIT 25.8 % (38.0-50.0); HEMOGLOBIN 8.3 gm/dL (13.0-16.0); LYMPHOCYTE# 0.6 X10e3 (1.0-3.5); LYMPHOCYTE% 5.1 % (17.0-45.0); MEAN CELL VOLUME 86.4 FL (83-96); MEAN CORPUSCULAR HEMOGLOBIN 27.6 PG (28-34); MEAN PLATELET VOLUME 8.4 FL (6.5-11.5); MONOCYTE# 1.8 X10e3 (0-1.0); MONOCYTE% 15.7 % (3.0-12.0); NEUTROPHIL% 78.1 % (40-75); PLATELET COUNT 143 X10e3 (140-420); RED BLOOD COUNT 2.98 X10e (3.90-5.60); RED CELL DISTRIBUTION WIDTH 16.7 % (11.0-15.5); WHITE BLOOD COUNT 11.5 X10e3 (4.0-10.5)
[2016-05-20 13:17] LABS: DIFF IND NO
[2016-05-20 16:43] LABS: BASOPHIL% 0.2 % (0-2.5); EOSINOPHIL# 0.1 X10e3 (0-0.7); EOSINOPHIL% 1.1 % (0.0-7.0); HEMATOCRIT 25.9 % (38.0-50.0); HEMOGLOBIN 8.3 gm/dL (13.0-16.0); LYMPHOCYTE# 0.6 X10e3 (1.0-3.5); LYMPHOCYTE% 5.3 % (17.0-45.0); MEAN CELL VOLUME 86.6 FL (83-96); MEAN CORPUSCULAR HEMOGLOBIN 27.7 PG (28-34); MEAN CORPUSCULAR HGB CONC 31.9 g/dL (30-36); MEAN PLATELET VOLUME 8.1 FL (6.5-11.5); MONOCYTE# 1.7 X10e3 (0-1.0); MONOCYTE% 14.6 % (3.0-12.0); NEUTROPHIL# 9.3 X10e3 (1.5-7.1); NEUTROPHIL% 78.8 % (40-75); PLATELET COUNT 146 X10e3 (140-420); RED BLOOD COUNT 2.99 X10e (3.90-5.60); RED CELL DISTRIBUTION WIDTH 16.9 % (11.0-15.5); WHITE BLOOD COUNT 11.8 X10e3 (4.0-10.5)
[2016-05-20 16:45] LABS: DIFF IND NO
[2016-05-21 04:48] LABS: HEMATOCRIT 24.3 % (38.0-50.0); HEMOGLOBIN 7.9 gm/dL (13.0-16.0); MEAN CELL VOLUME 86.4 FL (83-96); MEAN CORPUSCULAR HEMOGLOBIN 28.2 PG (28-34); MEAN CORPUSCULAR HGB CONC 32.6 g/dL (30-36); MEAN PLATELET VOLUME 8.4 FL (6.5-11.5); RED BLOOD COUNT 2.81 X10e (3.90-5.60); RED CELL DISTRIBUTION WIDTH 16.7 % (11.0-15.5); WHITE BLOOD COUNT 10.7 X10e3 (4.0-10.5)
[2016-05-21 06:09] LABS: ALBUMIN SERUM 2.9 g/dL (3.5-5.0); BILIRUBIN,TOTAL 1.1 mg/dL (0.2-2.0); BUN/CREATININE RATIO 18.51; CALCIUM SERUM 7.8 mg/dL (8.4-10.2); CREATININE SERUM 2.7 mg/dL (0.6-1.4); GLOM FILT RATE Estimated 20.3 mL/min (>60); MAGNESIUM 2.8 mg/dL (1.6-3.0); PHOSPHOROUS 4.5 mg/dL (2.5-4.6); POTASSIUM 4.5 mmol/L (3.5-5.1); PROTEIN TOTAL SERUM 5.1 g/dL (6.0-8.3)
[2016-05-22 05:35] LABS: BASOPHIL% 0.2 % (0-2.5); EOSINOPHIL# 0.2 X10e3 (0-0.7); EOSINOPHIL% 1.6 % (0.0-7.0); HEMATOCRIT 23.5 % (38.0-50.0); HEMOGLOBIN 7.5 gm/dL (13.0-16.0); LYMPHOCYTE# 0.4 X10e3 (1.0-3.5); LYMPHOCYTE% 4.8 % (17.0-45.0); MEAN CELL VOLUME 87.2 FL (83-96); MEAN CORPUSCULAR HEMOGLOBIN 27.9 PG (28-34); MEAN PLATELET VOLUME 8.3 FL (6.5-11.5); MONOCYTE# 1.3 X10e3 (0-1.0); MONOCYTE% 13.9 % (3.0-12.0); NEUTROPHIL# 7.4 X10e3 (1.5-7.1); NEUTROPHIL% 79.5 % (40-75); PLATELET COUNT 168 X10e3 (140-420); RED BLOOD COUNT 2.69 X10e (3.90-5.60); RED CELL DISTRIBUTION WIDTH 16.3 % (11.0-15.5); WHITE BLOOD COUNT 9.3 X10e3 (4.0-10.5)
[2016-05-22 05:58] LABS: DIFF IND YES
[2016-05-22 07:14] LABS: CALCIUM SERUM 7.8 mg/dL (8.4-10.2); CREATININE SERUM 2.6 mg/dL (0.6-1.4); GLOM FILT RATE Estimated 21.2 mL/min (>60); MAGNESIUM 2.4 mg/dL (1.6-3.0); POTASSIUM 4.1 mmol/L (3.5-5.1)
[2016-05-22 07:24] LABS: HYPOCHROMIA SL; PLATELET ESTIMATE NORMAL (NORMAL)
[2016-05-22 07:25] LABS: OVALOCYTES PRESENT
[2016-06-26] MEDS ORDERED: DITROPAN XL10 MG PO (02:35)
[2016-06-26] MEDS ORDERED: METOPROLOL TAR25 MG PO (02:35)
[2016-06-26] MEDS ORDERED: LIPITOR20 MG PO (02:35)
[2016-06-26] MEDS ORDERED: ASPIRIN81 MG PO (02:36)
[2016-06-26] MEDS ORDERED: PROTONIX PO (02:37)
[2016-06-26] MEDS ORDERED: FIBER500 MG PO (02:37)
[2016-06-26] MEDS ORDERED: IRON SUPPLEMENT (08:44)
[2016-06-26] MEDS ORDERED: NORCO (08:45)
[2016-06-26] MEDS ORDERED: VITAMIN D400 UNI2 PO (08:46)
== END 2016-05-22 15:15 | DRG 280 ==
LOC: CED 19:25 → CEDOF 05-17 03:20 → CICCU2 05-17 12:35
PROVIDERS: Emergency Medicine; Internal Medicine; Internal Medicine Cardiovascular Disease; Internal Medicine Nephrology; Nurse Practitioner; Surgery
PROC: 0BH17EZ Insertion of Endotracheal Airway into Trachea, Via Natural or Artificial Opening (ICD-10-PCS; principal; 2016-05-17)
PROC: 5A12012 Performance of Cardiac Output, Single, Manual (ICD-10-PCS; 2016-05-17)
PROC: 5A1945Z Respiratory Ventilation, 24-96 Consecutive Hours (ICD-10-PCS; 2016-05-17)
PROC: 5A1223Z Performance of Cardiac Pacing, Continuous (ICD-10-PCS; 2016-05-17)
PROC: 0W9930Z Drainage of Right Pleural Cavity with Drainage Device, Percutaneous Approach (ICD-10-PCS; 2016-05-17)
PROC: 4A023N8 Measurement of Cardiac Sampling and Pressure, Bilateral, Percutaneous Approach (ICD-10-PCS; 2016-05-17)
PROC: B211YZZ Fluoroscopy of Multiple Coronary Arteries using Other Contrast (ICD-10-PCS; 2016-05-17)
PROC: 30233N1 Transfusion of Nonautologous Red Blood Cells into Peripheral Vein, Percutaneous Approach (ICD-10-PCS; 2016-05-19)
DX: I21.4 Non-ST elevation (NSTEMI) myocardial infarction (principal); I49.01 Ventricular fibrillation; J96.01 Acute respiratory failure with hypoxia; N17.0 Acute kidney failure with tubular necrosis; R57.0 Cardiogenic shock; S22.41XA Multiple fractures of ribs, right side, initial encounter for closed fracture; D62 Acute posthemorrhagic anemia; I50.23 Acute on chronic systolic (congestive) heart failure; J93.83 Other pneumothorax; J90 Pleural effusion, not elsewhere classified; I13.0 Hypertensive heart and chronic kidney disease with heart failure and stage 1 through stage 4 chronic kidney disease, or unspecified chronic kidney disease; I44.30 Unspecified atrioventricular block; E78.5 Hyperlipidemia, unspecified; I73.9 Peripheral vascular disease, unspecified; I25.10 Atherosclerotic heart disease of native coronary artery without angina pectoris; Z86.73 Personal history of transient ischemic attack (TIA), and cerebral infarction without residual deficits; K27.9 Peptic ulcer, site unspecified, unspecified as acute or chronic, without hemorrhage or perforation; Z79.82 Long term (current) use of aspirin; I44.7 Left bundle-branch block, unspecified; K44.9 Diaphragmatic hernia without obstruction or gangrene; N18.3 Chronic kidney disease, stage 3 (moderate); I34.0 Nonrheumatic mitral (valve) insufficiency
CPT/HCPCS: 36415; 36600; 71010; 74000; 76770; 80048; 80053; 80061; 80076; 81003; 82550; 82553; 82803; 83605; 83735; 83880; 84100; 84132; 84443; 84484; 85014; 85018; 85025; 85027; 85610; 85730; 86850; 86900; 86901; 86923; 87040; 87086; 89190; 92526; 92610; 92950; 93005; 93306; 94002; 94010; 94760; 94761; 96374; 99291; C1769; C1887; C1894; C9113; G8996-GN; G8997-GN; J0171; J0282; J0330; J1265; J1630; J1650; J1940; J2250; J3010; J3475; J3480; P9016

== ENCOUNTER → 2016-06-25 | Outpatient (CLI) | payer OTHER ==
[~2016-06-25] MED LIST changes: +ASPIRIN81 MG PO; +CARAFATE PO; +DITROPAN XL10 MG PO; +FIBER500 MG PO; +IRON SUPPLEMENT; +LEVAQUIN750 M1 PO; +METOPROLOL TAR25 MG PO; +NORCO; +VITAMIN D400 UNI2 PO
[2016-06-25 12:59] LABS: HEMATOCRIT 24.8 % (38.0-50.0); HEMOGLOBIN 7.9 gm/dL (13.0-16.0); MEAN CELL VOLUME 83.7 FL (83-96); MEAN CORPUSCULAR HEMOGLOBIN 26.6 PG (28-34); MEAN CORPUSCULAR HGB CONC 31.8 g/dL (30-36); MEAN PLATELET VOLUME 7.8 FL (6.5-11.5); RED BLOOD COUNT 2.96 X10e (3.90-5.60); RED CELL DISTRIBUTION WIDTH 15.9 % (11.0-15.5); WHITE BLOOD COUNT 6.6 X10e3 (4.0-10.5)
== END | disposition home or self-care (01) ==
LOC: CLAB 11:47
PROVIDERS: Surgery
DX: D64.9 Anemia, unspecified (principal)
CPT/HCPCS: 36415; 85027; 86850; 86900; 86901; 86923

== ENCOUNTER → 2016-06-26 | Outpatient (CLI) | payer OTHER | END | disposition home or self-care (01) | LOC: CSSDAY 08:00 | DX: D50.9 Iron deficiency anemia, unspecified (principal); K90.9 Intestinal malabsorption, unspecified | CPT/HCPCS: 36430; P9016 ==

== ENCOUNTER 2016-07-15 15:01 | Inpatient (IN) | payer OTHER ==
--- NOTE | ~2016-07-15 | EKG ---
PATIENT: JOCELYN LAMBERT UNIT #: [id number] Ventricular Rate: 80 BPM Atrial Rate: 81 BPM QRS Duration: 222 ms Q-T Interval: 528 ms QTC Calculation(Bezet): 608 ms P Williamson: 88 degrees Calculated R Williamson: -63 degrees Calculated T Williamson: 96 degrees Diagnosis Line: Ventricular-paced rhythm Diagnosis Line: Abnormal ECG Diagnosis Line: When compared with ECG of 15-JUL-2016 15:05, Diagnosis Line: (unconfirmed) Diagnosis Line: No significant change was found Diagnosis Line: Confirmed by LASHELL LAY MD ([id number]) on Diagnosis Line: 07/16/2016 10:40:48 PM INTERPRETING MD: ELIS
--- NOTE | ~2016-07-15 | CO ---
Unit #: [id number] #: [id number] Patient: JOCELYN LAMBERT [id number] [facility] [address]. [place], [place] [address] [id number] I MR#: [id number] NAME: JOCELYN LAMBERT ROOM: 324 Age: 85 Sex: M Admission Date: 07/15/2016 : 1930 Attending Physician: Phi Watts M.D. Primary Care Physician: Naida Primary Care Physician Consultation Date: 07/18/2016 CONSULTATION REPORT CONSULTING PHYSICIAN Dr. Claudia Antonio REASON FOR CONSULT Altered mental status, per family request. PATIENT IDENTIFICATION This is an 85-year-old, left handed, male evaluated in room 324 at [facility]. SOURCE OF INFORMATION From the patient's family as well as the medical record. HISTORY OF PRESENT ILLNESS This is an 85-year-old, left handed, male with a past medical history of recent V-fib arrest in May with non-STEMI, CHF with an EF of 10% to 15%, stroke in 2008 and other medical comorbidities as discussed below, who presents to [facility] with shortness of air, admitted for acute on chronic respiratory failure, acute on chronic CHF. After discussion with the nurse caring for the patient today, she states the patient apparently had a restless night and the nurse told the family she was concerned about his mental status. Family then requested neurologic evaluation. The patient's was not available upon my evaluation but Dr. Gao did have a chance to talk with her whenever he evaluated her. On exam, the patient is nonfocal. He is oriented to person and place. He is sitting up in a chair. He does have some comprehension impairment when being asked to follow commands but nothing to suggest an acute primary neurologic change on exam. Dr. Gao discussed with the patient's and explained to her the rationale for doing some workup and testing for delirium and dementia and when to evaluate comorbidities. She did not report to him any focal neurologic changes nor did nursing. No reports of any speech changes, swallowing changes, vision changes, headache, neck pain, fever or chills, focal facial weakness or paresthesia or arm or leg weakness or paresthesia, any falls. Complains of chest pain or palpitations. No reports of aphasia, dysarthria or apraxia. The patient states that he feels okay today and is sitting up in the chart. No prior imaging available at the time of evaluation. PAST MEDICAL HISTORY 1. Admission to [facility] May 17 through 2016, status post ventricular fibrillation arrest and non-STEMI, acute systolic congestive heart failure with ejection fraction found to be 15%. He had an acute kidney injury and AV block that required Unit #: [id number] #: [id number] Patient: JOCELYN LAMBERT a permanent pacemaker. He was transferred to [facility] and did receive an AICD defibrillator/pacer and also had required a thoracentesis. It looks like he also had a pneumothorax and required a chest tube as a result of chest compression and rib fracture. Please see prior records. 2. Cardiac catheterization performed by Dr. Scott on May 17, 2016, that reveals an ejection fraction of 10% to 15%. All coronary arteries moderate to severely calcified. RCA normal and LAD showed two lesions with 90% stenosis in the distal one third and posterior division of the first obtuse marginal of the circumflex showed 90% stenosis. 3. AICD pacemaker placement in May 2016. Please see above. 4. Old right bundle branch block. 5. Previous strokes/TIA in 2008. Details unavailable. 6. Hypertension. 7. Hyperlipidemia. 8. Peripheral vascular disease. 9. Peptic ulcer disease. 10. Anxiety. 11. Depression. 12. Reformed smoker. 13. Thyroidectomy. 14. Partial gastrectomy for ulcer. 15. Colectomy for rectal cancer. 16. Stomach adhesions removed. 17. Hernia repair. 18. Discectomy. 19. Cataract surgery. ALLERGIES No known drug allergies. MEDICATIONS Home medications include: 1. Lipitor. 2. Metoprolol. 3. Aspirin. 4. Fiber. 5. Protonix. 6. Iron supplement. 7. Carafate. FAMILY HISTORY Noncontributory given his stated age of 85. SOCIAL HISTORY The patient is and lives with his . He is followed by [facility]. He ambulates with a cane and a walker at home. He is a reformed smoker. No illicit drug use. He occasionally has an alcoholic drink at night in the wintertime but no alcohol abuse. REVIEW OF SYSTEMS Fourteen point review of systems was attempted from the patient; however, he is a poor historian. Otherwise, as per discussion with the nursing staff and Dr. Gao's discussion with the patient's . PHYSICAL EXAMINATION VITAL SIGNS: Temperature 97.8, pulse 70, respirations 18, blood pressure Unit #: [id number] #: [id number] Patient: JOCELYN LAMBERT 124/72, oxygen saturation 99%, height 5 feet 10 inches, weight 160 pounds. NEUROLOGICAL EXAM: The patient is awake. He is alert and oriented to person, he is oriented to place but does have difficulty telling me exactly which hospital he is at. He is hard of hearing. He is not oriented to time. He has trouble answering some questions and following two and three step commands. He has no right/left confusion or finger agnosia. He is not aphasic or dysarthric. CRANIAL NERVE EXAM: He demonstrates full booth of vision. Eyes are conjugate without ptosis or nystagmus. Extraocular movements are intact. Sensation of the face and scalp is intact. Strength of muscles of facial expression is intact. Hearing is intact to conversation. He is very hard of hearing, however. Tongue is midline, uvula is midline. Palate elevation is normal. Head turning and shoulder shrug is unremarkable. Neck is supple. MOTOR EXAM: He demonstrates decreased bulk, normal tone. Strength is equal, 5- out of 5 in the extremities. SENSORY EXAM: Without extinction. GAIT: Deferred. ROMBERG: Deferred. REFLEXES: I was unable to elicit. Toes were mute. COORDINATION: No past-pointing seen. DIAGNOSTIC STUDIES IMAGING: No brain imaging studies available at the time of consultation. Past imaging reviewed and no brain imaging seen in DR or [facility]. LABORATORY: Sodium 141, potassium 3.2, chloride 99, CO2 32, glucose 91, BUN 24, creatinine 1.6, estimated GFR 38.2, calcium 8, magnesium 1.9. Troponin 0.22. PT 16.3, INR 1.5, white blood cell count 9.2, hemoglobin 9.6, hematocrit 29.8, platelet count 157. Urinalysis - 2+ protein, 1+ urobilinogen, negative for bacteria. Culture not indicated. Initial troponin 0.29, repeat troponin 0.25. BNP 3898 on arrival. White count on arrival 7.8. IMPRESSION 1. Encephalopathy. 2. Acute on chronic systolic heart failure. 3. Ejection fraction 10% to 15%. 4. Chronic kidney disease with acute kidney injury. 5. History of stroke/transient ischemic attacks in 2008. Details unavailable. 6. Recent non-ST elevation myocardial infarction and ventricular fibrillation arrest in May. 7. (1) . 8. Peripheral vascular disease. PLAN The patient is encephalopathic but he is 85 years old. He does have significant comorbidities and risk for cognitive impairment. He is nonfocal. However, nothing at this time to suggest an acute primary neurologic etiology. Dr. Gao has seen the patient and ordered a B12, folate and CT of the head no contrast as we have no baseline imaging for comparison. He discussed with the patient's and explained to her rationale of doing some workup and testing and explained the difference Unit #: [id number] #: [id number] Patient: JOCELYN LAMBERT between delirium and dementia and when to evaluate comorbidities. He likely has some toxic and metabolic encephalopathy on top of cognitive changes given his age and comorbidities. However, formal cognitive evaluation in patient is not recommended given that they are not typically at their baseline and are acutely ill. Recommend outpatient neurologic evaluation or neuropsychiatric and/or [facility]-Psych evaluation when he is at his baseline. Further recommendations pending workup and further clinical course. Dr. Gao has discussed with family at length and they agree with the plan. Please call for any questions or issues. We thank you very much for allowing us to assist in the care of this patient. Dictated by... Cathryn Ray A.P.R.N. for Tomy Valiente/fernando TD: 07/19/2016 11:40 JOB #: [id number] CONSULTATION REPORT Page 1 of 1 X Cathryn Ray APRN X CONSULTATION REPORT
--- NOTE | ~2016-07-15 | CT71 ---
[facility] A Service of [facility] RADIOLOGY TEXT RESULTS PATIENT: JOCELYN LAMBERT LOCATION: [facility] 324-01 : [birth year] UNIT #: [id number] AGE: [address]: Phi Watts MD SEX: M ORDER DR: [id number] [facility] [address]. [place], [place] [address] [id number] I MR#: [id number] #: [id number] NAME: JOCELYN LAMBERT : 1930 SEX: M STUDY DATE/TIME: 07/18/2016 17:28 UNIT: A PCU ROOM: [facility] STUDY DESCRIPTION: CT Head Wo Contrast Attending Physician: Phi Watts M.D. Ordering Physician: Boby Gao M.D. Primary Care Physician: Primary Care Physician No MEDICAL IMAGING REPORT This report is preliminary unless electronic signature is present EXAM Head CT without HISTORY Fell 1.5 weeks ago and hit head and has confusion. History of rectal cancer, not otherwise specified. This CT exam was performed with one or more of the following radiation dose reduction techniques: automatic exposure control, adjustment of mA and/or kV according to patient size, and iterative reconstruction. COMMENTS Routine noncontrast head CT is reviewed. There is a comparison from 2008. There is no displaced calvarial fracture. The mastoid air cells show a small amount of fluid or inflammatory change. The paranasal sinuses show a mucous retention cyst or polyp in the left sphenoid sinus but there is no sinus air-fluid level in the visualized paranasal sinuses. There is no extraaxial fluid collection. There is generalized atrophy. There are chronic lacunar insults in the bilateral basal ganglia, left greater than right more apparent than on the prior study. There is mild white matter low-attenuation nonspecific likely due to small vessel disease. No acute cortical infarct is appreciated. Note is made of a cavum septum pellucidum et vergae. If there is clinical concern for acute CVA followup imaging would be indicated, preferably with MRI. IMPRESSION 1. No acute intracranial injury is appreciated. 2. Atrophy and probable sequelae of small vessel disease with progression since the study of 2008. 3. If there is clinical concern for acute CVA, followup imaging is recommended, preferably with MRI if the patient is a candidate. [facility] A Service of [facility] RADIOLOGY TEXT RESULTS PATIENT: JOCELYN LAMBERT LOCATION: [facility] 324-01 : [birth year] UNIT #: [id number] AGE: [address]: Phi Watts MD SEX: M ORDER DR: Dictated by... Rima Mak M.D. THIS IS AN ELECTRONICALLY VERIFIED REPORT Rima Mak M.D. at 07/19/2016 7:40 AM MARIALUISA/torres TD: 07/18/2016 22:07 JOB #: [id number] MEDICAL IMAGING REPORT Page 1 of 1 COPY
--- NOTE | ~2016-07-15 | DS ---
Unit #: [id number] #: [id number] Patient: JOCELYN LAMBERT [id number] [facility]. [address] [address] [id number] I MR#: [id number] NAME: JOCELYN LAMBERT ROOM: 324 Age: 85 Sex: M Admission Date: 07/15/2016 : 1930 Discharge Date: 07/20/2016 Attending Physician: Phi Watts M.D. Primary Care Physician: No Primary Care Physician DISCHARGE SUMMARY DISCHARGE DISPOSITION To [facility] [place] [facility]. DISCHARGE CONDITION Stable. DISCHARGE DIAGNOSES 1. Acute on chronic hypoxic respiratory failure, resolved. 2. Acute on chronic systolic congestive heart failure, compensated. 3. Mildly elevated liver function tests, likely secondary to hepatic congestion. 4. A 2D echocardiogram, May 17, 2016, revealed a left ventricular ejection fraction of 15% to 20% with hesvakaw-gt-thdpct mitral regurgitation, mild pulmonic regurgitation, mild aortic regurgitation. 5. Indeterminate troponin with peak of 0.29, ruled out for myocardial infarction. 6. Coronary artery disease, status post previous cardiac catheterization, May 17, 2016, per Dr. Scott which revealed an ejection fraction of 10% to 15%. All coronary arteries moderate to severely calcified. Left main with no significant stenosis. LAD with moderate to severe calcification, proximal two-thirds no stenosis, distal one-third shows two areas of 90% discrete stenosis. Left circumflex with wciaaawp-uo-vqkueo calcification. Circumflex trunk normal. Posterior division of the first marginal branch 90% discrete stenosis. Distal vessel small. Second obtuse marginal normal. Posterior marginal branch small but normal. Right coronary artery with no significant stenosis. Medical therapy advised. Non ST elevation myocardial infarction. 7. Recent ventricular fibrillation arrest, status post automated implantable cardioverter defibrillator/permanent pacemaker, May 2016 with recent high-grade AV block. 8. Old right bundle branch block. 9. History of cerebrovascular accident in 2008. 10. Toxic metabolic encephalopathy. 11. Hypertension. 12. Hyperlipidemia. 13. Peripheral vascular disease. 14. Peptic ulcer disease. 15. Anxiety. 16. Depression. 17. Chronic kidney disease with a discharge creatinine of 1.5. 18. Chronic anemia. DISCHARGE MEDICATIONS Unit #: [id number] #: [id number] Patient: JOCELYN LAMBERT 1. Albuterol/ipratropium 3 mL inhalation every four hours p.r.n. 2. Magnesium oxide 400 mg p.o. b.i.d. 3. Metoprolol succinate 25 mg p.o. daily. 4. Furosemide 40 mg p.o. b.i.d. 5. Lipitor 40 mg p.o. nightly. 6. Citrucel 500 mg p.o. daily. 7. Carafate 1 g p.o. q.i.d. 8. Aspirin 81 mg p.o. daily. 9. Protonix 40 mg p.o. daily. 10. Potassium chloride 40 mEq p.o. daily. 11. Isosorbide dinitrate 20 mg p.o. b.i.d. HOSPITAL COURSE This is an 85-year-old white male well known to our group with a recent admission to [facility] in May 2016 for ventricular fibrillation arrest and non ST elevation myocardial infarction. He was found to have a low ejection fraction of approximately 15% as well as acute kidney injury. He was noted to have a high-grade AV block and ultimately required placement of an AICD/permanent pacemaker. A cardiac catheterization was completed on May 17, 2016, and revealed two-vessel disease but the patient was managed medically. A 2D echocardiogram on May 17, 2016, revealed mild aortic regurgitation and pbgydubm-os-takbrx mitral regurgitation. Ejection fraction was 15% to 20%. This hospitalization in May 2016 was complicated with a pneumothorax that required chest tube placement. He went to rehab for a few weeks and was discharged from rehab June 15, 2016. He was being followed at home by [facility]. The patient presented back to the hospital with complaints of shortness of breath. There were no complaints of chest pain. In the emergency department, chest x-ray revealed mild bilateral perihilar atelectasis versus edema. Cardiac markers were mildly elevated with a troponin of 0.29 and 0.25. BNP was elevated at 3898. LFTs were elevated. Creatinine was 1.7. Potassium was low at 3.1. He was placed on oxygen and started on IV Lasix. He was admitted for further management of acute on chronic congestive heart failure and respiratory failure. Serial cardiac enzymes were obtained and he ruled out for myocardial infarction. His electrolytes were supplemented. He was placed on scheduled Lasix which was ultimately changed to oral dosing. No DAMIEN inhibitor or ARB were prescribed due to elevated creatinine. He was placed on an oral nitrate. His labs were monitored closely. After a long discussion with the patient and their family, the patient was made a do not resuscitate. Physical therapy and occupational therapy were consulted. The patient was placed on low-dose Lovenox for VTE prevention. On July 18, 2016, he was found to be very drowsy and obtunded. Glucose level was normal. There was no evidence of an acute stroke. Dr. Gao was consulted. Patient was found to have encephalopathy which was thought to be due to toxic and metabolic encephalopathy. He was recommended to follow up with neurology or neuropsych. CT of the head with no contrast was obtained and revealed atrophy with probable small vessel disease with progression since 2008. His Soto catheter was discontinued today. He is euvolemic on exam. Electrolytes are stable. Vitals are unremarkable. He has been recommended for short-term rehab and will be discharged to [facility] [place] [facility] today. He has been instructed to follow an 1800 mL fluid restriction and low-sodium diet. He would benefit from daily weights. If he gains more than 3 pounds or has shortness of breath or worsening edema, our office should be notified. Unit #: [id number] #: [id number] Patient: JOCELYN LAMBERT DIAGNOSTIC STUDIES LABORATORY: White blood cell count 9.2, hemoglobin 9.6, hematocrit 29.8, platelets 157,000. Sodium 142, potassium 4.2, chloride 102, CO2 of 32, BUN 26, creatinine 1.5, glucose 93, magnesium 1.9. AST 91, ALT 90, alkaline phosphatase 75. Troponin 0.29, 0.25, 0.20, 0.22. BNP 3898. B12 of 883. Folate 15. Recent TSH 0.76, May 18, 2016. Recent lipid panel revealed total cholesterol 87, triglycerides 46, LDL 39, HDL 39 May 18, 2016. INR 1.5. Urinalysis with 2+ protein. IMAGING: Chest x-ray on July 15, 2016, revealed stable mild cardiac enlargement, mild bilateral perihilar atelectasis versus edema. CT of the head without contrast on July 18, 2016, revealed no acute intracranial injury, atrophy and probable small vessel disease with progression since study in 2008. CARDIOVASCULAR: Electrocardiogram reveals AV paced rhythm at 74 beats per minute. No acute changes. DISCHARGE INSTRUCTIONS 1. The patient will be discharged to [facility] [place] [facility] today. 2. He has been instructed to follow up with Dr. Scott on August 13, 2016 at 12:30 p.m. 3. Followup with Dr. Garcia with neurology in two to four weeks. 4. CHF education provided. 5. Call for weight gain greater than 3 pounds, worsening shortness of breath, or lower extremity edema. 6. Daily weights. 7. Diet: An 1800 mL daily fluid restriction with low sodium. 8. No DAMIEN or ARB due to chronic kidney disease. Dictated by... Edelmira Alcaraz APRN for Tomy Tate TD: 07/20/2016 15:50 JOB #: [id number] DISCHARGE SUMMARY Page 1 of 1 X X DISCHARGE SUMMARY
--- NOTE | ~2016-07-15 | HP ---
Unit #: [id number] #: [id number] Patient: JOCELYN LAMBERT 224020 [address] [place], [place] [address] [id number] I MR#: [id number] NAME: JOCELYN LAMBERT ROOM: 324 Age: 85 Sex: M Admission Date: 07/15/2016 : 1930 Attending Physician: Phi Watts M.D. HISTORY AND PHYSICAL HISTORY OF PRESENT ILLNESS This is an 85-year-old white male who is well known to our group who had been a patient of Dr. Scott. He was here this past May for several days because he had a ventricular fibrillation arrest and had a non-STEMI. He was found to have an ejection fraction of 15% and was in acute kidney injury requiring a pacemaker because of an AV block and ended up getting a defibrillator pacer. He had a pneumothorax that required a chest tube. He went to rehab for a few weeks and has been out of rehab since June 15. He is followed by [facility]. Patient had been doing fairly well but over the last week or so had been having increased shortness of breath especially with exertion and then at rest and more at rest over the last couple of days and also increased lower extremity edema. His daughter insisted on him coming to the emergency room because of these symptoms, and she just felt like he was starting to struggle to breathe. He denies any chest pain or pain in his neck or bilateral jaws, shoulders, arms, or elbows. He denies any palpitations and no dizziness, presyncope, or syncope. He has occasional cough but no fever or chills noted. In the emergency room, patient's blood pressure was 160/95, heart rate 80, respirations 16, temperature 97.1, and O2 saturations 100% on room air. His chest x-ray showed mild bilateral perihilar atelectasis or edema. His BNP was 3898. His initial troponin was 0.29, 0.25, and later 0.2. His LFTs are elevated. His creatinine is 1.7, potassium down to 3.1, and hemoglobin 10.7. Patient's was placed on oxygen, given some IV Lasix, and admitted for further management. PAST MEDICAL HISTORY 1. Admission to [facility] May 17-2016, status post ventricular fibrillation arrest, non-STEMI, acute systolic congestive heart failure, ejection fraction found to be 15%, acute kidney injury, AV block requiring a permanent pacemaker and did receive an AICD defibrillator/pacer, left pleural effusion requiring thoracentesis that resulted in pneumothorax and required chest tube, and rib fracture. 2. His last echo was on May 17, 2016, and showed an LVEF of 15% to 20%, left atrium moderately dilated, mild aortic valve calcification, mild aortic regurgitation, moderate to severe mitral regurgitation, and mild pulmonic regurgitation. 3. Cardiac cath performed by Dr. Scott on May 17, 2016, revealed an LVEF of 10% to 15%, all coronary arteries were moderate to severely calcified, RCA was normal, and LAD showed two lesions with 90% stenosis in the distal one-third and posterior division of the first obtuse marginal of the circumflex showed 90% stenosis. 4. Automatic implantable cardioverter-defibrillator/permanent pacemaker Unit #: [id number] #: [id number] Patient: JOCELYN LAMBERT in May 2016. 5. Prior to the last cardiac cath patient had a stent placed in the mid LAD. 6. Old right bundle branch block on EKG. 7. Previous stroke in 2008. 8. Hypertension. 9. Hyperlipidemia. 10. Peripheral vascular disease. 11. Peptic ulcer disease. 12. Anxiety and depression. 13. Reformed smoker. PAST SURGICAL HISTORY 1. Automatic implantable cardioverter-defibrillator/permanent pacemaker in May 2016 at [facility]. 2. Previous PCI and stent to the mid LAD. 3. Thyroidectomy. 4. Partial gastrectomy for ulcer. 5. Colectomy for rectal cancer. 6. Stomach adhesions removed. 7. Hernia repair. 8. Vasectomy. 9. Cataract surgery. HOME MEDICATIONS 1. Lipitor 20 mg p.o. daily. 2. Metoprolol 25 mg p.o. daily. 3. Aspirin 81 mg p.o. daily. 4. Fiber 500 mg p.o. daily. 5. Protonix 40 mg p.o. daily. 6. Iron supplement/Niferex 1 tablet daily. 7. Carafate 1 g p.o. 4 times daily. ALLERGIES No known drug allergies. SOCIAL HISTORY Patient lives at home with his . He has [facility] following. He ambulates with a cane and walker. Reformed smoker. He occasionally will have an alcoholic drink at night in the winter. FAMILY HISTORY Known coronary artery disease, details unavailable. REVIEW OF SYSTEMS CONSTITUTIONAL: Denies fever or chills. Recent weight gain due to swelling. HEENT: No visual or hearing changes. NECK: No lymphadenopathy or thyromegaly and no difficulty swallowing. CARDIOVASCULAR: Denies chest pain. Denies palpitations. Increased lower extremity edema. PULMONARY: Increased shortness of breath, paroxysmal nocturnal dyspnea, and orthopnea. GASTROINTESTINAL: Denies nausea, vomiting, diarrhea, or abdominal pain. NEUROLOGICAL: Generalized weakness. PHYSICAL EXAMINATION GENERAL: On exam, Mr. Lambert is an 85-year-old white male. He is Unit #: [id number] #: [id number] Patient: JOCELYN LAMBERT dyspneic especially with conversation and dyspneic at rest. VITAL SIGNS: This morning patient's blood pressure is 153/100, heart rate 96, respirations 18, temperature 98, and O2 saturations 100% on 3 liters. NECK: Trachea midline. No thyromegaly or lymphadenopathy. Normal carotid upstrokes. No jugular venous distention. HEART: S1 and S2, regular rate and rhythm, paced rhythm. Systolic murmur over aortic region left sternal border. LUNGS: Bilateral rales up to mid lobes. Scattered rhonchi in upper airway. ABDOMEN: Slightly obese (1) . EXTREMITIES: Pedal pulses are palpable with 2+ pedal edema. DIAGNOSTIC STUDIES LABORATORY: Glucose is 133, BUN 30, creatinine 1.9, eGFR 31, sodium 141, potassium 3.6, chloride 108, CO2 of 22, calcium 8.4, magnesium 1.6, total protein 6.2, albumin 3.7, bilirubin total 3.4, AST 91, ALT 90, and alkaline phosphatase is 75. BNP 3898. Initial cardiac enzymes: CK total is 151, MB is 7.2, percentage of MB 4.8, and troponin 0.29; CK total is 105, MB is 4.5, percentage of MB 4.3, and troponin 0.2. WBC 10.2, hemoglobin 10.7, hematocrit 34, and platelets of 181,000. INR is 1.6. Urinalysis with 2+ protein, 1 urobilinogen, otherwise unremarkable. IMAGING: Chest x-ray shows mild cardiac enlargement and probable mild bilateral perihilar atelectasis or edema. CARDIOLOGY: EKG shows ventricular paced underlying sinus rhythm. IMPRESSION 1. Acute on chronic hypoxic respiratory failure. 2. Acute on chronic systolic congestive heart failure. Last 2D echocardiogram on May 17, 2016, showed left ventricular ejection fraction of 15% to 20%, moderate to severe mitral regurgitation, mild pulmonary regurgitation, and mild aortic regurgitation. 3. Mildly elevated troponin with history of coronary artery disease. He had a non-ST segment myocardial infarction back in May 2016. Last cardiac catheterization was on May 17, 2016, that showed left anterior descending with two lesions of 90% in the distal one-third and the posterior division of the first obtuse marginal branch of the circumflex showed a 90% stenosis. Left ventricular ejection fraction was 10% to 15%. 4. Hypokalemia. 5. Hypomagnesemia. 6. Automatic implantable cardioverter-defibrillator/permanent pacemaker. 7. Previous stroke. 8. Hypertension. 9. Hyperlipidemia. 10. Peripheral vascular disease. 11. History of peptic ulcer disease in the past. 12. Anxiety and depression. 13. Reformed smoker. PLAN 1. Gently diurese with IV Lasix 60 mg b.i.d. Patient states he is breathing a little better. 2. His potassium and magnesium are low. Will supplement and monitor closely, especially his BUN and creatinine. 3. At this time, there is no DAMIEN inhibitor or ARB for his cardiomyopathy because of acute on chronic kidney disease. Unit #: [id number] #: [id number] Patient: JOCELYN LAMBERT 4. Will add hydralazine 25 mg p.o. every 6 hours and Isordil 20 mg p.o. twice daily. 5. Continue to monitor labs, especially BUN, creatinine, and electrolytes. 6. Patient's initial troponin was elevated, but they are trending downward. On exam, there are no signs or symptoms of unstable angina. 7. Dr. Antonio and myself had a long discussion with the patient and the family about a Do Not Resuscitate status and their wishes. Patient is requesting to be a Do Not Resuscitate status. 8. We are ordering another 2D echo to see if there is any worsening of his LVEF. 9. Further recommendations pending per Dr. Antonio. 1. Dictated by Adriana E. Lisseth Diaz M.D. CEC/am TD: 07/16/2016 18:38 JOB #: [id number] HISTORY AND PHYSICAL Page 1 of 1 X Adriana Diaz APRN X HISTORY AND PHYSICAL
--- NOTE | ~2016-07-15 | CR63 ---
[facility] A Service of [facility] RADIOLOGY TEXT RESULTS PATIENT: JOCELYN LAMBERT LOCATION: [facility] 324-01 : [birth year] UNIT #: [id number] AGE: [address]: Phi Watts MD SEX: M ORDER DR: [id number] [facility]. [place], [place] [address] [id number] I MR#: [id number] Acc #: [id number] NAME: JOCELYN LAMBERT : 1930 SEX: M STUDY DATE/TIME: 07/18/2016 15:51 UNIT: [address] ROOM: [facility] STUDY DESCRIPTION: CR Chest 2 View Attending Physician: Phi Watts M.D. Ordering Physician: Claudia Antonio M.D. Primary Care Physician: Primary Care Physician No MEDICAL IMAGING REPORT This report is preliminary unless electronic signature is present REVISED REPORT SEE ADDENDUM EXAM Two-view chest, 07/18/2016 INDICATIONS 85-year-old male with chest pain, shortness of air, congestive heart failure; symptoms began a year ago. TECHNIQUE Frontal chest compared with 07/15/2016. FINDINGS Cardiac silhouette is enlarged but stable, the vascularity is normal, lung volumes are low and there is bronchovascular crowding with some faint atelectasis in the lung bases. Overall appearance of the chest is ddmtlg-[id number] compared to the prior study. No pneumothorax or new effusion. IMPRESSION 1. Cardiomegaly with low lung volumes and atelectatic changes in the lung bases. Sefbdz-pt-lllccatm appearance compared to 07/15/2016. Dictated by... Kaiden Harley M.D. THIS IS AN ELECTRONICALLY VERIFIED REPORT Kaiden Harley M.D. at 07/19/2016 7:41 AM MARGARITA/flores TD: 07/18/2016 20:31 [facility] A Service of [facility] RADIOLOGY TEXT RESULTS PATIENT: JOCELYN LAMBERT LOCATION: [facility] 324-01 : [birth year] UNIT #: [id number] AGE: [address]: Phi Watts MD SEX: M ORDER DR: JOB #: [id number] ADDENDUM EXAM Two-view chest, 07/18/2016 ADDENDUM The examination should be titled as a two-view chest. The lateral projection is degraded by motion but there may be a trace amount of pleural fluid present bilaterally. No additional finding. JOB #: [id number] Dictated by... Kaiden Harley M.D. THIS IS AN ELECTRONICALLY VERIFIED REPORT Kaiden Harley M.D. at 07/23/2016 2:09 PM MARGARITA/flores TD: 07/18/2016 20:43 JOB #: [id number] MEDICAL IMAGING REPORT Page 1 of 1 COPY
--- NOTE | ~2016-07-15 | EKG ---
PATIENT: JOCELYN LAMBERT UNIT #: [id number] Ventricular Rate: 94 BPM Atrial Rate: 94 BPM P-R Interval: 156 ms QRS Duration: 206 ms Q-T Interval: 474 ms QTC Calculation(Bezet): 592 ms P [place]: 37 degrees Calculated R [place]: -62 degrees Calculated T [place]: 102 degrees Diagnosis Line: Electronic ventricular pacemaker Diagnosis Line: When compared with ECG of 15-JUL-2016 15:37, Diagnosis Line: (unconfirmed) Diagnosis Line: Vent. rate has increased BY 14 BPM Diagnosis Line: Confirmed by LASHELL LAY MD ([id number]) on Diagnosis Line: 07/16/2016 10:43:14 PM INTERPRETING MD: ELIS
--- NOTE | ~2016-07-15 | EKG ---
PATIENT: JOCELYN LAMBERT UNIT #: [id number] Ventricular Rate: 81 BPM Atrial Rate: 81 BPM P-R Interval: 202 ms QRS Duration: 186 ms Q-T Interval: 478 ms QTC Calculation(Bezet): 555 ms P [place]: 47 degrees Calculated R [place]: -67 degrees Calculated T [place]: 99 degrees Diagnosis Line: Atrial-sensed ventricular-paced rhythm Diagnosis Line: Abnormal ECG Diagnosis Line: When compared with ECG of 20-MAY-2016 07:04, Diagnosis Line: Vent. rate has increased BY 15 BPM Diagnosis Line: Confirmed by LASHELL LAY MD ([id number]) on Diagnosis Line: 07/15/2016 10:21:44 PM INTERPRETING MD: ELIS
--- NOTE | ~2016-07-15 | EKG ---
PATIENT: JOCELYN LAMBERT UNIT #: [id number] Ventricular Rate: 74 BPM Atrial Rate: 74 BPM QRS Duration: 230 ms Q-T Interval: 564 ms QTC Calculation(Bezet): 626 ms Calculated R [place]: -70 degrees Calculated T [place]: 102 degrees Diagnosis Line: AV sequential or dual chamber electronic pacemaker Diagnosis Line: When compared with ECG of 16-JUL-2016 06:08, Diagnosis Line: Vent. rate has decreased BY 20 BPM Diagnosis Line: Confirmed by LASHELL LAY MD ([id number]) on Diagnosis Line: 07/17/2016 10:14:37 PM INTERPRETING MD: ELIS
--- NOTE | ~2016-07-15 | CR72 ---
[facility] A Service of [facility] RADIOLOGY TEXT RESULTS PATIENT: JOCELYN LAMBERT LOCATION: [facility] 324-01 : [birth year] UNIT #: [id number] AGE: [address]: Phi Watts MD SEX: M ORDER DR: [id number] [facility] [address] [facility]. [place], [place] [address] [id number] MR#: [id number] Acc #: [id number] NAME: JOCELYN LAMBERT : 1930 SEX: M STUDY DATE/TIME: 07/15/2016 16:06 UNIT: [address] ROOM: [facility] hospital STUDY DESCRIPTION: CR Chest Single View Portable Attending Physician: Phi Watts M.D. Ordering Physician: Antonio Lafleur M.D. Primary Care Physician: Primary Care Physician No MEDICAL IMAGING REPORT This report is preliminary unless electronic signature is present EXAM Portable chest HISTORY Chest pain, shortness of air and heart palpitations today. FINDINGS Epbf-av-lznvujlv cardiac enlargement is similar to 05/24/2016. Pulmonary vascularity is within normal limits. Mild probable perihilar atelectasis or edema. No definite airspace consolidation. Right IJ line has been removed compared to the 05/24/2016 study. Remainder of the chest is stable. IMPRESSION Stable mild cardiac enlargement. Probable mild bilateral perihilar atelectasis or edema. Evaluation is partly limited by low lung volumes. Dictated by... Samuel Badillo M.D. THIS IS AN ELECTRONICALLY VERIFIED REPORT Samuel Badillo M.D. at 07/16/2016 3:02 PM DFDashawn/torres TD: 07/16/2016 03:06 JOB #: [id number] MEDICAL IMAGING REPORT Page 1 of 1 COPY
[2016-07-15 17:32] LABS: BASOPHIL% 0.6 % (0-2.5); EOSINOPHIL# 0.1 X10e3 (0-0.7); EOSINOPHIL% 0.8 % (0.0-7.0); HEMATOCRIT 33.5 % (38.0-50.0); HEMOGLOBIN 10.6 gm/dL (13.0-16.0); LYMPHOCYTE# 0.7 X10e3 (1.0-3.5); LYMPHOCYTE% 9.1 % (17.0-45.0); MEAN CELL VOLUME 83.3 FL (83-96); MEAN CORPUSCULAR HEMOGLOBIN 26.3 PG (28-34); MEAN CORPUSCULAR HGB CONC 31.6 g/dL (30-36); MEAN PLATELET VOLUME 8.4 FL (6.5-11.5); MONOCYTE# 0.8 X10e3 (0-1.0); MONOCYTE% 10.6 % (3.0-12.0); NEUTROPHIL# 6.1 X10e3 (1.5-7.1); NEUTROPHIL% 78.9 % (40-75); PLATELET COUNT 175 X10e3 (140-420); RED BLOOD COUNT 4.02 X10e (3.90-5.60); RED CELL DISTRIBUTION WIDTH 17.7 % (11.0-15.5); WHITE BLOOD COUNT 7.8 X10e3 (4.0-10.5)
[2016-07-15 17:33] LABS: DIFF IND NO
[2016-07-15 17:49] LABS: INR 1.6; PARTIAL THROMBOPLASTIN TIME 27.1 SECONDS (23.5-31.3); PROTHROMBIN TIME (PATIENT) 17.2 SECONDS (9.6-11.5)
[2016-07-15 17:59] LABS: ALBUMIN SERUM 3.9 g/dL (3.5-5.0); BILIRUBIN, DIRECT 0.7 mg/dL (0.0-0.2); BILIRUBIN,INDIRECT 2.9 mg/dL (0.0-0.9); BILIRUBIN,TOTAL 3.6 mg/dL (0.2-2.0); BUN/CREATININE RATIO 18.23; CALCIUM SERUM 8.6 mg/dL (8.4-10.2); CREATININE SERUM 1.7 mg/dL (0.6-1.4); GLOM FILT RATE Estimated 35.5 mL/min (>60); PROTEIN TOTAL SERUM 6.4 g/dL (6.0-8.3)
[2016-07-15 18:00] LABS: POTASSIUM 3.1 mmol/L (3.5-5.1)
[2016-07-15 18:50] LABS: URINE SOURCE CLEAN CATCH
[2016-07-15 18:55] LABS: URINE APPEARANCE CLEAR; URINE BILIRUBIN NEG (NEG); URINE BLOOD TRACE (NEG); URINE COLOR YELLOW; URINE GLUCOSE NEG (NEG); URINE KETONE NEG (NEG); URINE LEUKOCYTE ESTERASE NEG (NEG); URINE NITRATE NEG (NEG); URINE PROTEIN 2+ (NEG); URINE SPECIFIC GRAVITY 1.011 (1.003-1.035)
[2016-07-15 18:57] LABS: U HYALINE CASTS AUWI 0-2 /[LPF]; URBCS1 AUWI 0-2 /[HPF] (0-2); URINE BACTERIA AUWI NEG (NEGATIVE); URINE SQUAMOUS EPITHELIAL CELL NONE SEEN /[HPF]; UWBCS1 AUWI 0-2 (0-5)
[2016-07-15 19:02] LABS: %MB 4.8 % (0.0-4.0); MB 7.2 ng/ml
[2016-07-15 19:04] LABS: CULTURE INDICATED? NO
[2016-07-15] MEDS ORDERED: CARAFATE PO (20:04)
[2016-07-15 23:51] LABS: %MB 4.3 % (0.0-4.0); MB 5.7 ng/ml
[2016-07-16 06:01] LABS: BASOPHIL# 0.1 X10e3 (0-0.3); BASOPHIL% 0.9 % (0-2.5); EOSINOPHIL# 0.2 X10e3 (0-0.7); EOSINOPHIL% 1.6 % (0.0-7.0); HEMOGLOBIN 10.7 gm/dL (13.0-16.0); LYMPHOCYTE# 0.9 X10e3 (1.0-3.5); MEAN CELL VOLUME 83.3 FL (83-96); MEAN CORPUSCULAR HEMOGLOBIN 26.3 PG (28-34); MEAN CORPUSCULAR HGB CONC 31.6 g/dL (30-36); MEAN PLATELET VOLUME 8.5 FL (6.5-11.5); MONOCYTE# 1.1 X10e3 (0-1.0); NEUTROPHIL# 7.9 X10e3 (1.5-7.1); NEUTROPHIL% 77.5 % (40-75); PLATELET COUNT 181 X10e3 (140-420); RED BLOOD COUNT 4.08 X10e (3.90-5.60); WHITE BLOOD COUNT 10.2 X10e3 (4.0-10.5)
[2016-07-16 06:02] LABS: DIFF IND NO
[2016-07-16 08:09] LABS: ALBUMIN SERUM 3.7 g/dL (3.5-5.0); BILIRUBIN,TOTAL 3.4 mg/dL (0.2-2.0); BUN/CREATININE RATIO 15.78; CALCIUM SERUM 8.4 mg/dL (8.4-10.2); CREATININE SERUM 1.9 mg/dL (0.6-1.4); POTASSIUM 3.6 mmol/L (3.5-5.1); PROTEIN TOTAL SERUM 6.2 g/dL (6.0-8.3)
[2016-07-16 09:19] LABS: %MB 4.3 % (0.0-4.0); MB 4.5 ng/ml
[2016-07-17 05:39] LABS: HEMATOCRIT 29.8 % (38.0-50.0); HEMOGLOBIN 9.6 gm/dL (13.0-16.0); MEAN CELL VOLUME 82.2 FL (83-96); MEAN CORPUSCULAR HEMOGLOBIN 26.4 PG (28-34); MEAN CORPUSCULAR HGB CONC 32.2 g/dL (30-36); MEAN PLATELET VOLUME 8.5 FL (6.5-11.5); RED BLOOD COUNT 3.63 X10e (3.90-5.60); RED CELL DISTRIBUTION WIDTH 17.8 % (11.0-15.5); WHITE BLOOD COUNT 9.2 X10e3 (4.0-10.5)
[2016-07-17 05:53] LABS: INR 1.5; PROTHROMBIN TIME (PATIENT) 16.3 SECONDS (9.6-11.5)
[2016-07-17 06:29] LABS: BUN/CREATININE RATIO 15.55; CALCIUM SERUM 8.2 mg/dL (8.4-10.2); CREATININE SERUM 1.8 mg/dL (0.6-1.4); GLOM FILT RATE Estimated 33.1 mL/min (>60); MAGNESIUM 1.9 mg/dL (1.6-3.0)
[2016-07-17 06:35] LABS: POTASSIUM 2.9 mmol/L (3.5-5.1)
[2016-07-18 08:15] LABS: CREATININE SERUM 1.6 mg/dL (0.6-1.4); GLOM FILT RATE Estimated 38.2 mL/min (>60); MAGNESIUM 1.9 mg/dL (1.6-3.0); POTASSIUM 3.2 mmol/L (3.5-5.1)
[2016-07-19 06:20] LABS: BUN/CREATININE RATIO 17.33; CALCIUM SERUM 8.2 mg/dL (8.4-10.2); CREATININE SERUM 1.5 mg/dL (0.6-1.4); GLOM FILT RATE Estimated 41.3 mL/min (>60); POTASSIUM 4.2 mmol/L (3.5-5.1)
== END 2016-07-21 00:10 | DRG 291 ==
LOC: CED 15:01 → C3A PCU 20:00 → CEDOF 20:00 → CED 20:19 → CEDOF 23:19 → C3A PCU 23:19
PROVIDERS: Emergency Medicine; Internal Medicine Cardiovascular Disease; Psychiatry & Neurology Neurology
DX: I11.0 Hypertensive heart disease with heart failure (principal); J96.21 Acute and chronic respiratory failure with hypoxia; G92 Toxic encephalopathy; N17.9 Acute kidney failure, unspecified; I50.23 Acute on chronic systolic (congestive) heart failure; I25.2 Old myocardial infarction; Z86.73 Personal history of transient ischemic attack (TIA), and cerebral infarction without residual deficits; Z95.810 Presence of automatic (implantable) cardiac defibrillator; E78.5 Hyperlipidemia, unspecified; I73.9 Peripheral vascular disease, unspecified; F41.9 Anxiety disorder, unspecified; F32.9 Major depressive disorder, single episode, unspecified; Z87.891 Personal history of nicotine dependence; Z79.82 Long term (current) use of aspirin; H91.90 Unspecified hearing loss, unspecified ear; I34.0 Nonrheumatic mitral (valve) insufficiency
CPT/HCPCS: 36415; 70450; 71010; 71020; 80048; 80053; 80076; 81003; 82550; 82553; 82607; 82746; 83735; 83880; 84132; 84484; 85025; 85027; 85610; 85730; 92610; 93005; 93306; 94640; 94760; 96374; 97112; 97116; 97161; 97167; 97530; 97535; 99285; G8978-GP; G8979-GP; G8980-GP; G8987-GO; G8988-GO; G8996-GN; G8997-GN; J1650; J1940; J3475